=== PATIENT | male | born 1955 | race Caucasian/White ===

== ENCOUNTER → 2021-10-27 09:59 | Outpatient (BNVA) | payer MEDICARE, SELFPAY | PROVIDERS: PCP Family Medicine; Visit Provider Nurse Practitioner Family | DX: I10 Essential (primary) hypertension (principal); I48.91 Unspecified atrial fibrillation | CPT/HCPCS: 80053 ==

== ENCOUNTER → 2021-12-03 13:38 | Outpatient (BNVA) | payer MEDICARE, SELFPAY | PROVIDERS: PCP Family Medicine; Visit Provider Nurse Practitioner Family | DX: N18.32 Chronic kidney disease, stage 3b (principal); I10 Essential (primary) hypertension; I48.91 Unspecified atrial fibrillation; Z12.5 Encounter for screening for malignant neoplasm of prostate; R39.198 Other difficulties with micturition; N40.0 Benign prostatic hyperplasia without lower urinary tract symptoms; N39.0 Urinary tract infection, site not specified; Z12.2 Encounter for screening for malignant neoplasm of respiratory organs; F17.200 Nicotine dependence, unspecified, uncomplicated; R05.3 Chronic cough; Z11.59 Encounter for screening for other viral diseases; Z91.89 Other specified personal risk factors, not elsewhere classified; Z53.20 Procedure and treatment not carried out because of patient's decision for unspecified reasons; I71.40 Abdominal aortic aneurysm, without rupture, unspecified | CPT/HCPCS: 80053; 80061; G0103 ==

== ENCOUNTER 2021-12-17 10:35 | Inpatient (IN) | payer MEDICARE, MEDICAID, SELFPAY ==
[2021-12-17] VITALS (81 sets, daily range): BP systolic 98–142; BP diastolic 74–122; PULSE 72–239; RESP 17–29; TEMP 36.4–36.6; O2SAT 92–100; BMI 23.7
--- NOTE | 2021-12-17 10:38 | ED_ITS ---
HPI - Chest Pain General: Chief Complaint: Arrhythmia/Palpitations Stated Complaint: CP Time Seen by Provider: 12/17/21 10:38 History of Present Illness: Mr. Carr is a 66-year-old gentleman with history of known CAD status post PCI presenting to the emergency department due to abnor mal EKG. He reports approximately 1 week of progressive onset dyspnea and fatigue worse with exertion and occasional chest discomfort. He describes palpitations and generalized malaise. He presented to clinic today where he was noted to have a significantly elevated heart rate, borderline low blood pressure, and abnormal EKG. Initially clinic apparently believed that this was a STEMI however upon review appears to either be VT or SVT with aberrancy. EMS did not administer treatment in route other than supplemental oxygen. He did have 1 previous episode prior to last NC where he was cardioverted or given adenosine (somewhat unclear) and subsequently transferred for PCI. Onset (ago): week(s) Timing of current episode: increasing Prior episodes: Yes Onset: during rest Severity: severe Exacerbating factors: exertion Associated symptoms: Reports dyspnea and other Review of Systems General: Reports: 10 or more systems reviewed and unremarkable except in HPI and below Resp: Reports: dyspnea [facility] ED PFSH: Medical History (Updated 12/17/21 @ 12:44 by Cesar Chan MD) AAA (abdominal aortic aneurysm) Atrial fibrillation BPH (benign prostatic hyperplasia) CAD in [place] artery Current every day smoker Hepatitis C Reports this has not been completely treated. HTN (hypertension) Mixed hyperlipidemia Rheumatoid arthritis Surgical History (Updated 12/17/21 @ 12:32 by Cesar Chan MD) Stented coronary artery Family History (Updated 12/17/21 @ 12:32 by Cesar Chan MD) Other CAD (coronary artery disease) Dementia Social History (Updated 12/17/21 @ 12:33 by Cesar Chan MD) Smoking and tobacco status: current every day smoker Alcohol intake: former Desire information about substance/drug rehabilitation?: Yes Counseling given: Yes (given information and phone number for [facility] in [place] ) Type of substance drug use counseling provided: other Other substance/drug use counseling details: phone number [phone] Lives independently: No Marital status: / service: No Current occupational status: disabled Current gender identity: Male Physical Exam Const: COMMON NORMALS: alert GENERAL APPEARANCE: cooperative and well developed HENMT: COMMON NORMALS: normocephalic and atraumatic HEAD & SCALP: normocephalic and atraumatic Eye: COMMON NORMALS: conjunctivae normal CONJUNCTIVA: Yes conjunctivae normal SCLERA: sclerae normal Neck/C-Spine: COMMON NORMALS: supple GENERAL: Yes trachea midline Resp: COMMON NORMALS: clear to auscultation bilaterally EFFORT & INS PECTION: Yes able to speak in complete sentences and Yes tachypneic AUSCU LTATION: clear to auscultation bilaterally Cardio: COMMON NORMALS: regular rhythm RATE: tachycardic RHYTHM: regular rhythm GI: COMMON NORMALS: Soft to palpation PALPATION: Yes Soft to palpation and No Tenderness to palpation present (GI) Extremity: GENERAL: Yes normal exam except as noted and No edema Neuro: COMMON NORMALS: moves all extremities SENSORIUM/ORIENTATION: Yes alert and No Orientation impaired Psych: COMMON NORMALS: mental status grossly normal and Normal thought process present THOUGHT PROCESS: Normal thought process present Procedures Procedural Sedation Indication: other Preparation: athletic monitor applied, pulse oximeter, supplemental O2 applied, suction/airway equipment at bedside and IV secured Midazolam: IV Midazolam dose (mg): 4 Patient Tolerated Procedure: well and no complications Course Vital Signs: Vital signs: Vital Signs Pulse Rate 93 12/17/21 12:00 Blood Pressure 109/85 12/17/21 12:00 Pulse Oximetry 99 12/17/21 12:00 MDM - Chest Pain Medical Decision Making 66-year-old gentleman presenting to the emergency department with tachyarrhythmia. Patient is symptomatic with dyspnea on exertion and profound fatigue however at rest patient mentation is adequate without significant increase in respiratory effort. He does have borderline blood pressure 95/palp. Review of EKG still somewhat inconclusive for VT versus tachycardia with aberrancy however given age VT seems more likely. Given adequate mentation I will proceed with amiodarone. 150 mg administered over 10 minutes without significant rate improvement. I discussed electrical cardioversion with the patient and patient was administered 4 mg of Versed with desired therapeutic effect for procedure. Patient cardioverted with synchronized cardioversion x1 at 120 J with anterior posterior pad placement with successful conversion to sinus rhythm. Repeat EKG demonstrates sinus rhythm with nonspecific ST segment abnormalities. No STEMI Laboratory studies notable for leukocytosis of uncertain etiology, may be reactive, normal hemoglobin though perhaps hemoconcentrated compared to prior. Metabolic panel with creatinine elevation above recent study. Initial troponin elevated with 2-hour troponin pending, certainly there will be a component of elevation secondary to tachyarrhythmia and cardioversion. BNP is elevated. Chest x-ray with no lobar consolidation or pneumothorax. The results of ED evaluation were discussed with the patient including plan for admission due to requirement for level of care not available if discharged to prevent significant worsening/deterioration. Patient agreeable with plan. Case discussed with cardiology who will be consulted. Discussed case with Dr. Chan of the hospitalist service who agreed to admit the patient. Medical Records I reviewed the patient's medical records. Lab Data I reviewed the patient's lab results. : 12/17/21 10:40 12/17/21 10:40 Radiology Impressions Chest X-Ray 12/17/21 10:38 IMPRESSION: No acute findings. Laboratory Results WBC 16.2 10^3/uL (4.0-10.0) H 12/17/21 10:40 RBC 5.96 10^6/uL (4.1-5.3) H 12/17/21 10:40 Hgb 16.4 g/dL (11.7-16.6) 12/17/21 10:40 Hct 49.8 % (42.0-52.0) 12/17/21 10:40 MCV 83.6 fl (80-94) 12/17/21 10:40 MCH 27.5 pg (28.0-34.0) L 12/17/21 10:40 MCHC 32.9 g/dL (30.0-36.0) 12/17/21 10:40 RDW 16.5 % (12.1-15.1) H 12/17/21 10:40 Plt Count 299 10^3/cmm (130-400) 12/17/21 10:40 MPV 11.5 fL (7.4-10.4) H 12/17/21 10:40 Neut % (Auto) 51.9 % 12/17/21 10:40 Lymph % (Auto) 36.9 % 12/17/21 10:40 [place] % (Auto) 7.1 % 12/17/21 10:40 Eos % (Auto) 2.2 % 12/17/21 10:40 Baso % (Auto) 1.3 % 12/17/21 10:40 Neut # (Auto) 8.41 10^3/uL (1.8-7.7) H 12/17/21 10:40 Lymph # (Auto) 6.0 10^3/uL (0.8-4.8) H 12/17/21 10:40 [place] # (Auto) 1.2 10^3/uL (0.2-0.9) H 12/17/21 10:40 Eos # (Auto) 0.4 10^3/uL (0.0-0.8) 12/17/21 10:40 Baso # (Auto) 0.2 10^3/uL (0.0-0.1) H 12/17/21 10:40 Nucleated RBC % (auto) 0 % 12/17/21 10:40 Nucleated RBCs # 0.0 /100WBC 12/17/21 10:40 PT 14.10 SECONDS (12.1-14.9) 12/17/21 10:40 INR 1.06 (0.8-1.2) 12/17/21 10:40 APTT 26.7 SECONDS (23.9-36.7) 12/17/21 10:40 Sodium 139 mmol/L (136-145) 12/17/21 10:40 Potassium 3.6 mmol/L (3.5-5.1) 12/17/21 10:40 Chloride 99 mmol/L (98-107) 12/17/21 10:40 Carbon Dioxide 22 mmol/L (22-29) 12/17/21 10:40 Anion Gap 21.6 (5-19) H 12/17/21 10:40 BUN 30 mg/dL (8-23) H 12/17/21 10:40 Creatinine 1.7 mg/dL (0.7-1.2) H 12/17/21 10:40 GFR Calculation 40.7 mL/min (90-130) L 12/17/21 10:40 Glucose 121 mg/dL (65-115) H 12/17/21 10:40 Calculated Osmolality 295 mOsm/kg (285-295) 12/17/21 10:40 Calcium 9.4 mg/dL (8.5-10.5) 12/17/21 10:40 Magnesium 2.2 mg/dL (1.7-2.3) 12/17/21 10:40 Total Bilirubin 0.4 mg/dL (0.15-1.2) 12/17/21 10:40 AST 11 U/L (0-40) 12/17/21 10:40 ALT 10 U/L (0-41) 12/17/21 10:40 Alkaline Phosphatase 114 U/L (40-130) 12/17/21 10:40 Troponin T Baseline 32 ng/L (0-15) H 12/17/21 10:40 NT-Pro-B Natriuret Pep 35870 pg/mL (0-125) H 12/17/21 10:40 Total Protein 7.4 g/dL (6.6-8.7) 12/17/21 10:40 Albumin 4.2 g/dL (3.5-5.2) 12/17/21 10:40 Globulin 3.2 g/dL (1.3-4.6) 12/17/21 10:40 TSH 1.76 uIU/mL (0.27-4.20) 12/17/21 10:40 Critical Care Time Critical Care Time: Critical Care Time: Yes Total Critical Care Time: 45 Attestation: Due to a high probability of clinically significant, possibly life threatening deterioration, the patient required my highest level of attention and preparedness to intervene emergently and I personally spent this critical care time directly and personally managing the patient. This critical care time included obtaining a history; examining the patient; pulse oximetry; ordering and review of laboratory and imaging studies; arranging urgent treatment with development of a management plan; evaluation of patient's response to treatment; frequent reassessment; and, discussions with other providers as applicable. It was exclusive of separately billable procedures. Primary system involved is cardiac Discharge Plan Discharge Patient Disposition: Admitted As Inpatient Clinical Impression: Ventricular tachyarrhythmia Condition: Stable Coding Level of Care Code ED Geology Associate for Ashleigh [facility]ws[facility] Exam Comprehensive
--- NOTE | 2021-12-17 10:38 | XRR_ITS ---
PROCEDURE INFORMATION: Exam: XR Chest Exam date and time: 12/17/2021 10:43 AM Age: 66 years old Clinical indication: Angina pectoris; Patient HX: Chest pain. Aed pads in place and in images. ; Additional info: Cp TECHNIQUE: Imaging protocol: Radiologic exam of the chest. Views: 1 view. COMPARISON: CR XR chest 1V [id number] 03/10/2018 7:44 PM FINDINGS: Lungs: Unremarkable. No consolidation. Pleural spaces: Unremarkable. No pleural effusion. No pneumothorax. Heart/Mediastinum: Unremarkable. No cardiomegaly. Bones/joints: Unremarkable. XR/XR chest 1V portable [id number] IMPRESSION: No acute findings.
--- NOTE | 2021-12-17 10:38 | ECG_ITS ---
[facility] Test Date: 2021-12-17 Pat Name: Иван Carr Department: Room: Gender: Male City Dispatch Supervisor: : 1955 Requested By: Ed Carpenter Order Number: [id number] Carley MD: Mya Kilgore M.D. Measurements Intervals [place] Rate: 218 P: [place]: QRS: -12 QRSD: 238 T: 80 QT: 307 QTc: 586 Interpretive Statements Wide-complex tachycardia Compared to ECG 03/10/2018 22:52:46 Sinus rhythm no longer present ST (T wave) deviation still present Electronically Signed On 12-17-2021 12:21:30 CDT by Mya Kilgore M.D. [id number]
[2021-12-17 10:46] LABS: Basophils # 0.2 10^3/uL (0.0-0.1); Basophils % 1.3 %; Eosinophils # 0.4 10^3/uL (0.0-0.8); Eosinophils % 2.2 %; Hematocrit 49.8 % (42.0-52.0); Hemoglobin 16.4 g/dL (11.7-16.6); Lymphocytes % 36.9 %; Mean Corpuscular HGB Conc 32.9 g/dL (30.0-36.0); Mean Corpuscular Hemoglobin 27.5 pg (28.0-34.0); Mean Corpuscular Volume 83.6 fl (80-94); Mean Platelet Volume 11.5 fL (7.4-10.4); Monocytes # 1.2 10^3/uL (0.2-0.9); Monocytes % 7.1 %; Neutrophils # 8.41 10^3/uL (1.8-7.7); Neutrophils % 51.9 %; Nucleated Red Blood Cells % 0 %; Platelet Count 299 10^3/cmm (130-400); Red Blood Count 5.96 10^6/uL (4.1-5.3); Red Cell Distribution Width 16.5 % (12.1-15.1); White Blood Count 16.2 10^3/uL (4.0-10.0)
[2021-12-17] MEDS: sodium chloride 0.9% 500 ML 999 ML IV (11:00)
[2021-12-17 11:01] LABS: INR 1.06 (0.8-1.2)
[2021-12-17 11:03] LABS: Partial Thromboplastin Time 26.7 SECONDS (23.9-36.7)
[2021-12-17 11:07] LABS: Troponin(5th) Baseline 32 ng/L (0-15)
[2021-12-17] MEDS: midazolam 1 mg/mL INJ 2 mL 6 MG IVP (11:07)
--- NOTE | 2021-12-17 11:20 | PC.NURSE ---
Patient arrived to the ED with HR over 200. Provider ordered Amioderone, which was unsuccessful in coverting the patient. Patient was then instructed about the benefits and dangers of cardioversion. patient gave verbal consent. Patient was successfully cardioverted to SR. Patient is now resting in bed.
[2021-12-17 11:27] LABS: Alanine Aminotransferase 10 U/L (0-41); Albumin Level 4.2 g/dL (3.5-5.2); Alkaline Phosphatase 114 U/L (40-130); Aspartate Amino Transferase 11 U/L (0-40); Blood Urea Nitrogen 30 mg/dL (8-23); Calcium 9.4 mg/dL (8.5-10.5); Carbon Dioxide 22 mmol/L (22-29); Globulin 3.2 g/dL (1.3-4.6); Glomerular Filtration Rate 40.7 mL/min (90-130); Glucose 121 mg/dL (65-115); NT Pro B Type Natriuretic Pept 24812 pg/mL (0-125); Thyroid Stimulating Hormone 1.76 uIU/mL (0.27-4.20); Total Bilirubin 0.4 mg/dL (0.15-1.2); Total Protein 7.4 g/dL (6.6-8.7)
[2021-12-17 11:40] LABS: Anion Gap 21.6 (5-19); Chloride 99 mmol/L (98-107); Osmolality Calculated 295 mOsm/kg (285-295); Potassium 3.6 mmol/L (3.5-5.1); Sodium 139 mmol/L (136-145)
[2021-12-17 11:55] LABS: Magnesium 2.2 mg/dL (1.7-2.3)
--- NOTE | 2021-12-17 12:25 | P.HP_ITS ---
Providers/Chief Complaint Admitting Physician: Cesar Chan MD Primary Care Provider: Radha Brice MD Chief Complaint: CP History of Present Illness Иван Carr is a 66 year old male presenting to the emergency department from primary care provider's office. Apparently he has been feeling very short of breath, having significant palpitations as well as funny feeling in his chest over the last week. He states it is very frequent and he rarely has had a time without it. He had a back surgery, lower back around the seventh of this month. At that time he had held his Plavix and did not resume it. He was started on Plavix for angiogram and stent placement in [place] approximately 2019 or 20. At that time he reported stenting of the maker vessel and reported another vessel was 70% narrowed but was not intervened on. He also did not resume his Plaquenil or carvedilol after his back surgery. He has been taking his diltiazem. He reports he is still smoking. He denies any recent illness. He denies any chest discomfort currently, reporting he feels much better after his cardioversion. In the emergency department he presented with tachycardia, rate approximately 220, wide-complex. Amiodarone 150 mg IV x1 was given, but with no improvement cardioversion occurred. On arrival systolic blood pressure was less than 90. Review of Systems General: Reports: 10 or more systems reviewed and unremarkable except in HPI and below Const: Denies: fever(s) or chills Eyes: Denies: change in vision ENMT: Denies: throat pain Card: Reports: palpitations and dyspnea on exertion Resp: Reports: dyspnea GI: Denies: abdominal pain, hematochezia or melena : Reports: difficulty urinating; Denies: flank pain Musc: Reports: back pain and joint stiffness; Denies: neck pain Skin/Breast: Denies: rash Neuro: Denies: headache(s) Psych: Denies: anxiety or depression Endo: Denies: polyuria [place]/Lymph: Denies: easy bruising All/Imm: Denies: urticaria Medications/Allergies Home Medications Medication Instructions Recorded Confirmed Last Taken Type carvedilol 12.5 mg tablet 12.5 mg PO BID 04/23/21 12/17/21 Unknown History diltiazem HCl 120 mg 120 mg PO DAILY 04/23/21 12/17/21 Unknown History capsule,extended release 24 hr, controlled hydrochlorothiazide 12.5 mg tablet 12.5 mg PO DAILY 04/23/21 12/17/21 12/16/21 History hydroxychloroquine 200 mg tablet 200 mg PO BID 04/23/21 12/17/21 Unknown History doxycycline hyclate 100 mg tablet 100 mg PO BID 10 days #20 tabs 12/03/21 12/17/21 Unknown Rx tamsulosin 0.4 mg capsule 0.4 mg PO BID 90 days #180 caps 12/03/21 12/17/21 12/16/21 Rx atorvastatin 20 mg tablet 20 mg PO DAILY 30 days #30 tabs 12/04/21 12/17/21 11/03/08 Rx bupropion HCl 150 mg 24 hr tablet, 150 mg PO DAILY 12/17/21 12/17/21 Unknown History extended release clopidogrel 75 mg tablet 75 mg PO DAILY 30 days #30 tabs 12/17/21 12/17/2112/16 Rx ondansetron HCl 4 mg tablet 4 mg PO TID PRN Nausea And Vomiting 12/17/21 12/17/21 Unknown History prednisone 5 mg tablet 5 mg PO DAILY PRN flare ups 12/17/21 12/17/21 Unknown History Allergies Allergy/AdvReac Type Severity Reaction Status Date / Time No Known Allergies Allergy Verified 12/17/21 11:59 PFSH Acute PFSH: Medical History (Updated 12/17/21 @ 12:44 by Cesar Chan MD) AAA (abdominal aortic aneurysm) Atrial fibrillation BPH (benign prostatic hyperplasia) CAD in [place] artery Current every day smoker Hepatitis C Reports this has not been completely treated. HTN (hypertension) Mixed hyperlipidemia Rheumatoid arthritis Surgical History (Updated 12/17/21 @ 12:32 by Cesar Chan MD) Stented coronary artery Family History (Updated 12/17/21 @ 12:32 by Cesar Chan MD) Other CAD (coronary artery disease) Dementia Social History (Updated 12/17/21 @ 12:33 by Cesar Chan MD) Smoking and tobacco status: current every day smoker Alcohol intake: former Desire information about substance/drug rehabilitation?: Yes Counseling given: Yes (given information and phone number for [facility] in [place] ) Type of substance drug use counseling provided: other Other substance/drug use counseling details: phone number [phone] Lives independently: No Marital status: / service: No Current occupational status: disabled Current gender identity: Male Vitals/I&O/Wt Last Vital Signs Pulse 93 12/17/21 12:00 BP 109/85 12/17/21 12:00 Pulse Ox 99 12/17/21 12:00 12/16/21 12/17/21 12/17/21 22:59 06:59 14:59 Intake Total 103 / 103 Balance 103 / 103 Weight last 48 hrs Weight 79.379 kg Physical Exam Narrative: General exam is a white male, currently denies any chest discomfort, in no distress HEENT: Atraumatic and normocephalic. Pupils equally round. Oropharynx clear. Neck is supple no lymphadenopathy or thyromegaly Cardiovascular regular rate and rhythm without murmur Lungs clear but with diminished breath sounds bilaterally. No wheezes or crackles Abdomen is soft nontender with positive bowel sounds. No obvious organomegaly exam is deferred Extremities no cyanosis clubbing or edema, cap refill brisk Skin no rash Neuro no obvious focal deficits. Data : 12/17/21 10:40 12/17/21 10:40 Other Labs: INR is normal Previous creatinine on December 03 was 0.9 Calcium 9.4 LFTs normal Troponin baseline 32 BNP 18421 TSH 1.76 Magnesium 2.2 Chest x-ray no infiltrate EKG initially demonstrated a heart rate of 218, wide-complex Repeat EKG demonstrates flipped T waves inferiorly and V1 through 3. No bundle branch block is noted. Rate improved at 98. These T wave abnormalities were not present on previous EKG we have in 2016. A&P Assessment and plan (1) Arrhythmia: [facility] wide-complex tachycardia and approximately 220 bpm. This was a very uniform. It appears to be ventricular tachycardia, although I cannot completely exclude atrial flutter through a left bundle. Will defer to cardiology. The patient does have history of coronary artery disease, with last intervention 2 to 3 years ago in [place]. His magnesium is normal. Potassium is in the normal range but will supplement to try to make for or greater. He did stop many of his medicines following back surgery on 21 November. These included Plaquenil, carvedilol, Plavix. From what I understand he is still taking his diltiazem. Amiodarone was given in the emergency department as a one-time bolus. It was not continued. Cardiology will address whether they would want to continue an amiodarone drip at this time. (2) Atrial fibrillation: Patient with past history of atrial fibrillation. This was noted on event monitor in 2016. Echo at that time was essentially normal. (3) Elevated troponin: Elevated troponin, arrhythmia, past history of heart disease bring up possibility of non-ST elevation myocardial infarction. Full dose anticoagulation Aspirin daily Load with Plavix Reinitiate low-dose beta-mo Cardiology consultation (4) Acute kidney injury: Hydration Suspect this will resolve Plan Other medical problems as outlined in past medical history Full code Lovenox will suffice for DVT prophylaxis Attestations Medical Necessity Statement*: Will require greater than 2 midnight stay for evaluation of wide-complex tachycardia. Coding Level of Care Code Acute Biochemical Development Engineer for [facility]i Diagnoses Arrhythmia I49.9 Atrial fibrillation I48.91 Elevated troponin R77.8 Acute kidney injury N17.9
--- NOTE | 2021-12-17 12:25 | USCV_ITS ---
[place]ван Age: 66 Gender: M : 1955 Exam Date: 12/17/2021 15:35 Ordering Phys: Cesar Chan MD Technologist: LAST [place] [facility] [place]: ARRHYTHMIA BP: 129 / 88 HR: 92 Rhythm: Sinus Technical Quality: Adequate MEASUREMENTS (Male / Female) Normal Values 2D ECHO LVOT Diameter 2.0 cm LV Ejection Fraction MOD 2C 64.8 % LV Ejection Fraction 2C AL 66.2 % LA Diameter 2.8 cm LA Width 3.3 cm LA Height 5.2 cm RA Width 3.8 cm RA Height 5.2 cm Aorta at Sinotubular Diameter 1.8 cm M-MODE Aortic Annulus Diameter 3.0 cm LA Ao Ratio MM 0.8 MV E Point Septal Separation 0.4 cm DOPPLER AV Peak Velocity 135.0 cm/s LVOT Peak Velocity 78.0 cm/s AV Area Cont Eq vti 1.9 cm squared AV Area Cont Eq pk 1.8 cm squared MV Peak Velocity 87.0 cm/s MV Area PHT 4.4 cm squared Mitral E to A Ratio 1.2 MV E' Velocity 40.5 cm/s Mitral E to MV E' Ratio 7.4 Mitral E to LV E' Lateral Ratio 7.4 Mitral E to LV E' Septal Ratio 7.4 TR Peak Velocity 236.8 cm/s TR Peak Gradient 22.4 mmHg TR Mean Velocity 185.9 cm/s TR Mean Gradient 14.9 mmHg TR Velocity Time Integral 69.5 cm TV Peak E Velocity 40.0 cm/s Right Atrial Pressure 8.0 mmHg Pulmonary Artery Systolic Pressu 30.4 mmHg PV Peak Velocity 76.0 cm/s RV Acceleration Time 0.1 s RV Ejection Time 0.2 s RV AcT/ET 0.2 FINDINGS Left Ventricle Normal left ventricular size, systolic function and wall thickness, with no regional wall motion abnormalities. Left ventricular ejection fraction is estimated at 55 %. Grade I/IV diastolic dysfunction (abnormal relaxation filling pattern), normal to mildly elevated filling pressures. Right Ventricle Normal right ventricular size and systolic function. Normal right ventricular systolic pressure. Right Atrium The right atrium is normal in size. Left Atrium The left atrium is normal in size. Mitral Valve Structurally normal mitral valve. Trace mitral valve regurgitation. Aortic Valve Structurally normal trileaflet aortic valve. Mild aortic valve calcification. Aortic valve sclerosis without stenosis. No aortic valve regurgitation. Tricuspid Valve Structurally normal tricuspid valve. Trace tricuspid valve regurgitation. Pulmonic Valve Pulmonic valve not well visualized. Pericardium Normal pericardium without effusion. Aorta Normal ascending aorta dimension. IVC The inferior vena cava appears normal. CONCLUSIONS Normal left ventricular size, systolic function and wall thickness, with no regional wall motion abnormalities. Left ventricular ejection fraction is estimated at 55 %. Grade I/IV diastolic dysfunction (abnormal relaxation filling pattern), normal to mildly elevated filling pressures. Structurally normal mitral valve. Trace mitral valve regurgitation. When compared to the previous echo dated 04/30/2015, there has been no significant change. Dr. Micah Laurent MD (Electronically Signed) Final Date: 18 December 2021 06:58 S
--- NOTE | 2021-12-17 12:38 | ECG_ITS ---
[facility] Test Date: 2021-12-17 Pat Name: Иван Carr Department: Room: Gender: Male Journal Box Inspector: : 1955 Requested By: Ed Carpenter Order Number: [id number] Carley MD: Mya Kilgore M.D. Measurements Intervals [place] Rate: 98 P: 51 WV: 142 QRS: 79 QRSD: 86 T: -14 QT: 354 QTc: 453 Interpretive Statements SINUS RHYTHM LEFT ATRIAL ENLARGEMENT [-0.15mV P-WAVE IN V1/V2] NONSPECIFIC ST & T-WAVE ABNORMALITY Compared to ECG 12/17/2021 10:38:58 Atrial abnormality now present T-wave abnormality now present Left bundle-branch block no longer present ST (T wave) deviation no longer present Myocardial infarct finding no longer present Electronically Signed On 12-17-2021 12:13:01 CDT by Mya Kilgore M.D. [id number]
[2021-12-17 13:14] LABS: Troponin 5 2HR 26.68 ng/L (0-15)
[2021-12-17 13:19] LABS: Troponin 5 2HR Delta -5.32 ABS# (0-10)
[2021-12-17] MEDS: potassium chloride ER 20 mEq Tablet 40 MEQ PO (13:47)
--- NOTE | 2021-12-17 13:50 | PC.PHAR ---
pt states he takes care of his own medications-pt states he is not taking carvedilol 25mg bid ext med history shows last filled 06/19/21 30d/s-pt states he hasnt taken hydroxychloroquine 200mg bid since around oct 22 2021 ext med history shows last filled 09/28/21 30d/s-pt states he is unsure if he takes diltiazem er 120mg daily ext med history shows last filled 10/21/21 90d/s-pt states since oct 22 2021 he hasnt been taking his medications like he should states he had back surgery -notes are made in the pharmacy comments
--- NOTE | 2021-12-17 14:31 | P.CONIM_ITS ---
Providers/Reason For Consult Consulting Physician/Specialty*: Cardiovascular medicine Reason for Consult*: Wide-complex tachycardia Requesting Physician: Cesar Chan Attending Physician: Cesar Chan Primary Care Provider: Radha Brice MD History of Present Illness History of Present Illness Иван Carr is a 66 year old male who has a history of coronary artery disease and had a stent placed several years ago in [facility]. He sees physicians in a variety of areas. Currently he is being seen by physicians in [place]. He is moving to this area he states. Over the last week he has had an irregular fast pounding heart rate. He states that he has a taste of steel in his mouth. He is not having any chest pain. He arrived in the emergency room with a wide-complex tachycardia with a rate of over 200 bpm. This represents either ventricular tachycardia or atrial fibrillation with a left bundle branch block. Emergency room physician gave him 150 mg of amiodarone which did not change the rhythm. The patient was awake and alert and has actually been in this rhythm for a week. When the amiodarone did not work he was sedated and cardioverted. He is now back in sinus rhythm. He is a bit of a suspect historian. He states that he has a AAA 4 cm x 4.1 cm. He sees a physician in [place] for this. He also has a history of atrial fibrillation along with a coronary artery disease. He is a smoker for many years. He has COPD. He has a history of hepatitis C, hypertension, dyslipidemia, rheumatoid arthritis and a chronic intermittent methamphetamine abuse. Has been in half-way several times for the drugs including 2005, 2017 and 2019. He states he has been clean and sober for 7 months. Review of Systems Narrative: Review of systems is negative Medications/Allergies Home Medications Medication Instructions Recorded Confirmed Last Taken Type diltiazem HCl 120 mg 120 mg PO DAILY 04/23/21 12/17/21 Unknown History capsule,extended release 24 hr, controlled hydrochlorothiazide 12.5 mg tablet 12.5 mg PO DAILY 04/23/21 12/17/21 12/16/21 History hydroxychloroquine 200 mg tablet 200 mg PO BID 04/23/21 12/17/21 10/22/21 History tamsulosin 0.4 mg capsule 0.4 mg PO BID 90 days #180 caps 12/03/21 12/17/21 12/16/21 Rx atorvastatin 20 mg tablet 20 mg PO DAILY 30 days #30 tabs 12/04/21 12/17/2103/08 Rx bupropion HCl 150 mg 24 hr tablet, 150 mg PO DAILY 12/17/21 12/17/21 Unknown History extended release clopidogrel 75 mg tablet 75 mg PO DAILY 30 days #30 tabs 12/17/21 12/17/21 11/0 03/08 Rx ondansetron HCl 4 mg tablet 4 mg PO TID PRN Nausea And Vomiting 12/17/21 12/17/21 Unknown History prednisone 5 mg tablet 5 mg PO DAILY PRN flare ups 12/17/21 12/17/21 Unknown History Allergies Allergy/AdvReac Type Severity Reaction Status Date / Time No Known Allergies Allergy Verified 12/17/21 13:49 PFSH Acute PFSH: Medical History (Updated 12/17/21 @ 12:44 by Cesar Chan MD) AAA (abdominal aortic aneurysm) Atrial fibrillation BPH (benign prostatic hyperplasia) CAD in [place] artery Current every day smoker Hepatitis C Reports this has not been completely treated. HTN (hypertension) Mixed hyperlipidemia Rheumatoid arthritis Surgical History (Updated 12/17/21 @ 12:32 by Cesar Chan MD) Stented coronary artery Family History (Updated 12/17/21 @ 12:32 by Cesar Chan MD) Other CAD (coronary artery disease) Dementia Social History (Updated 12/17/21 @ 12:33 by Cesar Chan MD) Smoking and tobacco status: current every day smoker Alcohol intake: former Desire information about substance/drug rehabilitation?: Yes Counseling given: Yes (given information and phone number for [facility] in [place] ) Type of substance drug use counseling provided: other Other substance/drug use counseling details: phone number [phone] Lives independently: No Marital status: / service: No Current occupational status: disabled Current gender identity: Male Vitals/I&O/Wt Last Vital Signs Pulse 86 12/17/21 13:45 BP 136/101 12/17/21 13:45 Pulse Ox 96 12/17/21 13:45 12/16/21 12/17/21 12/17/21 22:59 06:59 14:59 Intake Total 603 / 603 Balance 603 / 603 Weight last 48 hrs Weight 175 lb Physical Exam Narrative: GENERAL: General he looks comfortable and is resting without any difficulty HEENT: Exam within normal limits. NECK: Supple without jugular vein distention. The carotid upstroke is normal without bruits. BACK: Exam normal. LUNGS: Clear. HEART: Regular rate and rhythm. ABDOMEN: Benign without organomegaly or tenderness. EXTREMITIES: No edema. NEUROLOGIC: Exam normal. SKIN: Unremarkable. Data : 12/17/21 10:40 12/17/21 10:40 Other data: His BUN and creatinine are 30 and 1.7. Troponins 32 and 27. His BNP is almost 25,000. Cholesterol is 256 and an LDL of 190. Chest x-ray unremarkable. A&P Assessment and plan (1) Acute kidney injury: (2) Elevated troponin: (3) Arrhythmia: (4) Current every day smoker: (5) Atrial fibrillation: (6) HTN (hypertension): (7) AAA (abdominal aortic aneurysm): (8) Mixed hyperlipidemia: (9) CAD in [place] artery: (10) Abnormal EKG: (11) Chronic kidney disease, stage 3b: Plan He will need to come in. With his history of atrial fibrillation I am a little more suspicious this is atrial fibrillation with a rapid rate and a left bundle as opposed to ventricular tachycardia. He does have underlying coronary disease however so it could be VT. I think we will start out with a stress test since his BUN and creatinine are high. These are probably high because of the persistent rhythm disturbance. This also probably explains his BNP. An echo has been ordered. Once we get the echo and the stress test we will determine whether angiography is necessary. Otherwise, he will continue to be treated medically. Consult Attestations Medical Necessity Statement: Admission for management of wide-complex tachycardia and underlying organic heart disease. 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
[2021-12-17 14:36] LABS: Add Urine Culture? No; Bacteria Urine TRACE /hpf; Bilirubin Urine Neg (Negative); Blood Urine Neg (Negative); Glucose Urine UA Norm (Normal); Ketones Urine Negative (Negative); Leukocyte Esterase Urine Negative (Negative); Nitrate Urine Negative (Negative); Protein Urine Neg (Negative); Urine Appearance Clear (CLEAR); Urine Color Yellow (Yellow); Urobilinogen Urine Norm (Negative); pH Urine 5 (5-7)
--- NOTE | 2021-12-17 15:20 | PC.NURSE ---
Pt arrived from Emergency Dept. Pt alert and oriented. Pt denies any pain and/or shortness of breath. Sinus rhythm noted on monitor. Room orientation completed. Questions answered. No further needs at this time
[2021-12-17] MEDS: enoxaparin 80 mg/0.8 mL Syringe SUBCUT (17:02)
[2021-12-17] MEDS: sodium chloride 0.9% 1,000 ML 75 ML IV ×2 (17:02→23:57)
[2021-12-17] MEDS: tamsulosin 0.4 mg Capsule PO (17:03)
[2021-12-17] MEDS: carvedilol 6.25 mg Tablet PO (17:03)
[2021-12-17 17:33] LABS: Troponin 5 6HR 62.21 ng/L (0-15)
[2021-12-17 17:41] LABS: Troponin 5 6HR Delta 30.21 ng/L (0-12)
--- NOTE | 2021-12-17 18:27 | PC.NURSE ---
Shift Note; Sinus rhythm noted on monitor since arrival to .. Echo completed but not read at this time. Pt continues to deny pain or shortness or breath. IV fluids started. Pt up to BSC, flatus noted. Urine dark yellow. Daughter, Yelena, was in to visit, all questions answered. Plan to have stress test. Then after stress test and echo read, decide on anigogram per Dr Laurent's progress note. Frequent safety and comfort rounds continue. Orders and/or nursing care completed as indicated. Patient monitored for response to intervention and treatment(s). Education provided includes Lovenox, cardizem, and Flomax and Plan of care. . Patient and/or entry level marketing representative verbalized understanding of plan of care and medications discussed. Will continue to monitor.
--- NOTE | 2021-12-17 18:50 | PC.NURSE ---
Bedside report completed with DANYELLE Oliva
[2021-12-18] VITALS (13 sets, daily range): BP systolic 102–134; BP diastolic 73–96; PULSE 72–90; RESP 14–31; TEMP 36.3–36.9; O2SAT 92–98
[2021-12-18] MEDS: enoxaparin 80 mg/0.8 mL Syringe SUBCUT ×2 (03:35→16:26)
[2021-12-18] MEDS: sodium chloride 0.9% 1,000 ML 75 ML IV (06:06)
[2021-12-18 07:48] LABS: Basophils # 0.1 10^3/uL (0.0-0.1); Basophils % 1.9 %; Eosinophils # 0.4 10^3/uL (0.0-0.8); Eosinophils % 6.1 %; Hematocrit 39.2 % (42.0-52.0); Hemoglobin 12.6 g/dL (11.7-16.6); Lymphocytes % 43.8 %; Mean Corpuscular HGB Conc 32.1 g/dL (30.0-36.0); Mean Corpuscular Volume 83.9 fl (80-94); Mean Platelet Volume 11.1 fL (7.4-10.4); Monocytes # 0.6 10^3/uL (0.2-0.9); Monocytes % 8.4 %; Neutrophils # 2.67 10^3/uL (1.8-7.7); Neutrophils % 39.5 %; Nucleated Red Blood Cells % 0 %; Platelet Count 184 10^3/cmm (130-400); Red Blood Count 4.67 10^6/uL (4.1-5.3); White Blood Count 6.8 10^3/uL (4.0-10.0)
--- NOTE | 2021-12-18 07:59 | PM.PN ---
Subjective Subjective: The patient has had an uneventful night. No more arrhythmias. The troponins were relatively low the first 32, the second 27 and the third 62. His BNP was nearly 25,000. His echo this morning shows normal LV function and is the same as it was a few years ago. No chest pain. Vitals/I&O/Wt Last Vital Signs Temp 97.7 F 12/18/21 06:00 Pulse 74 12/18/21 06:00 Resp 14 12/18/21 06:00 BP 117/84 12/18/21 06:00 Pulse Ox 96 12/18/21 06:00 O2 Del Method 12/18/21 06:00 12/17/21 12/18/21 12/18/21 22:59 06:59 14:59 Intake Total 600 / 1203 1486.833 / 2689.833 Output Total 125 / 125 450 / 575 Balance 475 / 1078 1036.833 / 2114.833 Weight last 48 hrs Weight 173 lb Weight 175 lb Physical Exam Narrative: GENERAL: In general he is comfortable this morning HEENT: Exam within normal limits. NECK: Supple without jugular vein distention. The carotid upstroke is normal without bruits. BACK: Exam normal. LUNGS: Clear. HEART: Regular rate and rhythm. ABDOMEN: Benign without organomegaly or tenderness. EXTREMITIES: No edema. NEUROLOGIC: Exam normal. SKIN: Unremarkable. Data : 12/18/21 07:38 12/17/21 10:40 A&P Assessment and plan (1) Acute kidney injury: (2) Elevated troponin: (3) Current every day smoker: (4) Arrhythmia: (5) Atrial fibrillation: (6) HTN (hypertension): (7) AAA (abdominal aortic aneurysm): (8) Mixed hyperlipidemia: (9) CAD in [place] artery: Plan Now that we have the echo information it appears even more likely that the rhythm disturbance was atrial fibrillation with a left bundle branch block. I have put the carvedilol on hold and we will do a stress test today. I am not moving directly to angiography because of his renal function. If his stress test is unremarkable I will switch him to Betapace for the arrhythmia. He should be considered for anticoagulation as well. Attestations Medical Necessity Statement*: Hospitalization for wide-complex tachycardia. 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
[2021-12-18 08:03] LABS: Alanine Aminotransferase 8 U/L (0-41); Albumin Level 3.2 g/dL (3.5-5.2); Alkaline Phosphatase 80 U/L (40-130); Anion Gap 11.5 (5-19); Aspartate Amino Transferase 13 U/L (0-40); Blood Urea Nitrogen 23 mg/dL (8-23); Calcium 8.5 mg/dL (8.5-10.5); Carbon Dioxide 23 mmol/L (22-29); Chloride 107 mmol/L (98-107); Globulin 2.6 g/dL (1.3-4.6); Glomerular Filtration Rate 67.2 mL/min (90-130); Glucose 85 mg/dL (65-115); Magnesium 1.7 mg/dL (1.7-2.3); Osmolality Calculated 289 mOsm/kg (285-295); Potassium 3.5 mmol/L (3.5-5.1); Sodium 138 mmol/L (136-145); Total Bilirubin 0.3 mg/dL (0.15-1.2); Total Protein 5.8 g/dL (6.6-8.7)
--- NOTE | 2021-12-18 08:04 | ECG_ITS ---
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 Interpretive Statements NAME OF STUDY: LEXISCAN SESTAMIBI STRESS TEST INDICATION: Chest Pain PROCEDURE: At the baseline, the blood pressure was 155/101 mmHg with a heart rate of 79 bpm. The electrocardiogram showed normal sinus rhythm, normal axis with ST depression and T wave inversion in lead III, aVF, V3 to V6. The Lexiscan was infused over a period of 20 seconds. A total of 0.4 milligrams of Lexiscan was infused. The stress phase was continued for a total of 5 minutes. Heart rate at the end of the stress phase was 92 bpm with a blood pressure of 138/92 mmHg. The EKG at the peak infusion revealed sinus rhythm with no significant ST-T wave changes. Sestamibi was injected 20 seconds after the Lexiscan infusion. Blood pressure at the end of the recovery phase was 125/92 mmHg with a heart rate of 90 beats per minute. CONCLUSION: 1. Nondiagnostic EKG due to LexiScan infusion due to baseline ST-T wave changes. 2. No LexiScan induced chest pain or cardiac arrhythmia. 3. Normal blood pressure and heart rate response. 4. Sestamibi/sestamibi perfusion scan pending; see separate report. Electronically Signed On 12-18-2021 17:52:25 CDT by Mya Kilgore M.D. [id number]
--- NOTE | 2021-12-18 08:07 | NMCV_ITS ---
NM arabella perf SPECT r/s* [id number] LedgewoodИван Age: 66 Gender: M : 1955 Exam Date: 12/18/2021 08:07 Ordering Phys: Micah Laurent MD ([email or web address]) Technologist: CONRAD Pineda Exam Location: [facility] Indications: CHEST PAIN STRESS TEST Please see separate stress test report in [facility] for full findings IMAGE PROTOCOL Rest/Stress 1 Lexiscan Day Radiopharmaceutical Dose (mCi) Administration Site Administered by Rest: Tc-99m 10.6 IV CONRAD Ta Sestamibi Stress:Tc-99m 32.6 IV CONRAD Ta Sestamibi Rest: 18-Dec-2021 60 Discovery 630 Stress: 18-Dec-2021 30 Discovery 630 0.4mg Lexiscan. Supine position only as patient was unable to lay prone. SPECT RESULTS Technical Quality: Excellent Raw Data Analysis: Subdiaphragmatic attenuation artifact. Image Corrections: No attenuation or motion correction applied Summed Stress Score: 1 Summed Rest Score: 0 Summed Difference Score: 1 PERFUSION FINDINGS SPECT images demonstrate homogeneous tracer distribution throughout the myocardium. FUNCTIONAL RESULTS (calculated via Gated SPECT) Stress Image LV EF (%): 60 Stress EDV (mL):106 TID: 1.24 Stress ESV (mL):42 FUNCTIONAL FINDINGS: The left ventricle is normal in size. Transient Ischemia Dilatation of 1.2. There is normal left ventricular systolic function. There is normal left ventricular wall thickening. Normal end-diastolic end-systolic volumes. IMPRESSIONS 1. Myocardial perfusion imaging is normal. Attenuation artifact in mid to apical inferior wall. 2. Overall left ventricular systolic function is normal without regional wall motion abnormalities,LVEF=60%. 3. Transient ischemic dilation index mildly increased at 1.2. This may represent hypertensive response/subendocardial ischemia. Clinical correlation is advised. 4. EKG portion of the study will be reported separately. Mya Kilgore MD (Electronically Signed) Final Date: 18 December 2021 17:50 S
--- NOTE | 2021-12-18 10:59 | PM.PN ---
Subjective Subjective: Иван reports he is feeling better. Undergoing a stress test today. No chest discomfort or palpitations last night. Beta-mo held for stress test. Medications: Reviewed: Yes Vitals/I&O/Wt Last Vital Signs Temp 97.7 F 12/18/21 08:00 Pulse 74 12/18/21 10:00 Resp 14 12/18/21 10:00 BP 117/84 12/18/21 10:00 Pulse Ox 96 12/18/21 10:00 O2 Del Method 12/18/21 10:00 12/17/21 12/18/21 12/18/21 22:59 06:59 14:59 Intake Total 600 / 1203 1486.833 / 2689.833 Output Total 125 / 125 450 / 575 Balance 475 / 1078 1036.833 / 2114.833 Weight last 48 hrs Weight 78.471 kg Weight 79.379 kg Physical Exam Narrative: General exam is a white male, no distress Neck is supple no lymphadenopathy or thyromegaly Cardiovascular regular rate and rhythm without murmur Lungs clear but with diminished breath sounds bilaterally. No wheezes or crackles Abdomen is soft nontender with positive bowel sounds. No obvious organomegaly exam is deferred Extremities no cyanosis clubbing or edema, cap refill brisk Skin no rash Data : 12/18/21 07:38 12/18/21 07:38 A&P Assessment and plan (1) Arrhythmia: Patient presented to the emergency department, an outlying physician's office with wide-complex tachycardia and approximately 220 bpm. This was a very uniform. It appears to be ventricular tachycardia, although I cannot completely exclude atrial flutter through a left bundle. Will defer to cardiology. The patient does have history of coronary artery disease, with last intervention 2 to 3 years ago in [place]. He did stop many of his medicines following back surgery on 21 November. These included Plaquenil, carvedilol, Plavix. From what I understand he is still taking his diltiazem. Amiodarone was given in the emergency department as a one-time bolus. It was not continued. Potassium level 3.5 today. Supplement 40 mill equivalents. Echo essentially normal (2) Atrial fibrillation: Patient with past history of atrial fibrillation. This was noted on event monitor in 2015. Echo at that time was essentially normal. Rhythm disturbance higher likelihood and discussion with cardiology that this represents atrial fibs/flutter through left bundle. Await nuclear stress test. Continue full dose anticoagulation TSH was checked and normal. (3) Elevated troponin: Elevated troponin, arrhythmia, past history of heart disease bring up possibility of non-ST elevation myocardial infarction. Continue full dose anticoagulation Continue aspirin Appreciate cardiology consultation (4) Acute kidney injury: With hydration this has resolved Plan Other medical problems as outlined in past medical history Full code Lovenox will suffice for DVT prophylaxis Attestations Medical Necessity Statement*: Needs continued hospitalization for delineation of cause of arrhythmia, elevated troponin, awaiting nuclear stress test and further plans for rhythm control per cardiology. 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
[2021-12-18] MEDS: regadenoson 0.4 Mg/5 ml Syringe IVP (12:30)
--- NOTE | 2021-12-18 12:53 | PC.CHAP ---
Pastoral Care Encounter/Spiritual Assessment Type of Contact [] Declined vending technician visit [] Patient/Family/Request visit [] Outpatient visit [] Follow-up visit [] Physician referral [] Code/Alert [x] Routine visit [] Staff referral [] Actively dying [] Patient sleeping [] Family support [] [] Out of room [] Palliative care [] [] Receiving care in room [] Pre-surgical visit [] Trauma [] Long length of stay [x] ICU visit [] Other: Relational/Emotional Strength [] Patient feels connected with others/family/visitors/staff [] Distress [] Loneliness/isolation [] Abandonment Spirituality of Patient [] Person of Mary Carmen [] Attends Hinduism of their Mary Carmen [] Believes in Prayer [] Reads Bible or Jainism materials [] There are Spiritual issues to be addressed Electrical And Instrument Engineer Interventions [x] Prayer [] Active listening [] Non-anxious presence [] Spiritual/emotional support [] Crisis/trauma care [] Spiritual counseling [] Bereavement support [] Provided bereavement packet [] Provided Bible/devotional materials [] Provided toy/stuffed animal, coloring book to patient or family member [] Provided Communion [] Anointing/Guildhall [] Salvation [x] Completed spiritual assessment [] Other: Impact on Illness or Injury [] Angry [] Fearful [] Anxious [] Often cries [] Exhaustion [] Unable to work [] Unable to attend druze [] Unable to walk/stand [] Unable to read [] Unable to drive [] Unable to eat/drink [] Unable to sleep [] Unable to be with family [] Patient intubated [] Other: Summary Time spent with patient
[2021-12-18] MEDS: pantoprazole DR 40 mg Tablet PO (13:55)
[2021-12-18] MEDS: aspirin 81 mg EC Tablet PO (13:56)
[2021-12-18] MEDS: potassium chloride ER 20 mEq Tablet 40 MEQ PO (13:56)
[2021-12-18] MEDS: atorvastatin 40 mg Tablet 20 MG PO (13:56)
--- NOTE | 2021-12-18 15:00 | PC.NURSE ---
Report to CSU Report called to Carmela BASSETT. Pt taken via wheelchair. Bedside report given to Carmela.
[2021-12-18] MEDS: tamsulosin 0.4 mg Capsule PO (17:13)
[2021-12-18] MEDS: sotalol 80 mg Tablet PO (19:51)
[2021-12-19] VITALS (7 sets, daily range): BP systolic 123–157; BP diastolic 85–103; PULSE 66–82; RESP 16–26; TEMP 36.5–37.1; O2SAT 92–96
[2021-12-19] MEDS: enoxaparin 80 mg/0.8 mL Syringe SUBCUT (04:44)
[2021-12-19 05:47] LABS: Anion Gap 11.3 (5-19); Blood Urea Nitrogen 19 mg/dL (8-23); Calcium 8.7 mg/dL (8.5-10.5); Carbon Dioxide 25 mmol/L (22-29); Chloride 107 mmol/L (98-107); Glucose 85 mg/dL (65-115); Magnesium 1.7 mg/dL (1.7-2.3); Osmolality Calculated 290 mOsm/kg (285-295); Potassium 4.3 mmol/L (3.5-5.1); Sodium 139 mmol/L (136-145)
[2021-12-19] MEDS: morphine 4 mg/mL SDV 1 mL 2 MG IVP (06:14)
--- NOTE | 2021-12-19 07:36 | ECG_ITS ---
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 Measurements Intervals Kennan Rate: 71 P: 28 MN: 146 QRS: 77 QRSD: 89 T: 5 QT: 393 QTc: 429 Interpretive Statements SINUS RHYTHM NONSPECIFIC T-WAVE ABNORMALITY Compared to ECG 12/17/2021 11:11:38 Atrial abnormality no longer present T-wave abnormality still present Electronically Signed On 12-19-2021 11:52:12 CDT by Mya Kilgore M.D. [email or web address] Technologyocean springs hospitalRocket Reliefohio valley surgical hospitalFooda/store/[id number]
[2021-12-19] MEDS: tamsulosin 0.4 mg Capsule PO (08:21)
[2021-12-19] MEDS: atorvastatin 40 mg Tablet 20 MG PO (08:21)
[2021-12-19] MEDS: sotalol 80 mg Tablet PO (08:21)
[2021-12-19] MEDS: pantoprazole DR 40 mg Tablet PO (08:22)
[2021-12-19] MEDS: aspirin 81 mg EC Tablet PO (08:22)
--- NOTE | 2021-12-19 09:07 | PM.PN ---
Subjective Subjective: Patient has been moved to the [facility] floor. Uneventful last 24 hours. Stress test was negative for ischemia. He remains in sinus rhythm. I began Betapace 80 mg twice daily starting last night. His EKG this morning reveals sinus rhythm with a corrected QT interval of 429 ms. His echocardiogram revealed normal left ventricular function. He is feeling well this morning. His creatinine yesterday was down to 1.1 and today it is 1.0. His glomerular filtration rate is up to 75. Vitals/I&O/Wt Last Vital Signs Temp 97.7 F 12/19/21 08:00 Pulse 71 12/19/21 08:00 Resp 17 12/19/21 08:00 BP 157/103 12/19/21 08:00 Pulse Ox 94 12/19/21 08:00 O2 Del Method 12/19/21 08:00 12/18/21 12/19/21 12/19/21 22:59 06:59 14:59 Intake Total 480 / 480 Balance 480 / 480 Weight last 48 hrs Weight 177 lb Weight 173 lb Weight 175 lb Physical Exam Narrative: GENERAL: In general he looks and feels well today HEENT: Exam within normal limits. NECK: Supple without jugular vein distention. The carotid upstroke is normal without bruits. BACK: Exam normal. LUNGS: Clear. HEART: Regular rate and rhythm. ABDOMEN: Benign without organomegaly or tenderness. EXTREMITIES: No edema. NEUROLOGIC: Exam normal. SKIN: Unremarkable. Data : 12/18/21 07:38 12/19/21 04:48 A&P Assessment and plan (1) Acute kidney injury: (2) Elevated troponin: (3) Arrhythmia: (4) Current every day smoker: (5) Atrial fibrillation: (6) HTN (hypertension): (7) AAA (abdominal aortic aneurysm): (8) Mixed hyperlipidemia: (9) CAD in [place] artery: Plan As long as he continues to do well he can probably go home today. He should be started on an anticoagulant. He should see the nurse practitioner in the clinic in 7 to 10 days to check a twelve-lead EKG to assess the QT interval and to make sure that he is maintaining sinus rhythm. Attestations Medical Necessity Statement*: Hospitalization for wide-complex tachycardia. 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
--- NOTE | 2021-12-19 09:54 | PM.DCS ---
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 A wide-complex tachycardia was noted. Ultimately, this was thought to be most likely atrial fibrillation with aberrant conduction through left bundle after discussion with cardiology regarding history, presentation, laboratory, rhythm strips. He was anticoagulated and troponins were followed. Nuclear stress test was done which demonstrated no reversible ischemia. He was initiated on sotalol, and followed closely. QT interval the following day demonstrated no prolongation. On December 19 it was thought he could be discharged home. I discussed with cardiology the plan in detail and he will follow-up in approximately 7 days with cardiology clinic for repeat EKG. He can follow-up with his primary in 4 to 7 days. He was started on Eliquis, sotalol. His diltiazem and beta-mo were discontinued. For blood pressure Norvasc, 5 mg a day was initiated. He had a chance to ask questions, risks of Eliquis and medication were described to him, and he agreed with plan. Physical Exam Narrative: General exam no distress Neck is supple no lymphadenopathy or thyromegaly Cardiovascular regular rate and rhythm without murmur Lungs clear Abdomen soft with positive bowel sounds Extremities no cyanosis clubbing or edema Skin no rash Discharge Data Studies Completed and Pending Completed Studies During Hospitalization Category Date Time Status Cardiac Stress Test MIBI [Sestamibi Stress Test Request Exams 12/18/21 08:04 Completed ] Routine XR chest 1V portable [id number] Stat Exams 12/17/21 10:38 Completed NM arabella perf SPECT r/s* [id number] Routine Nuc Med 12/18/21 08:07 Completed CV. echo complete* [id number] Routine Ultrasound 12/17/21 12:25 Completed Radiology Impressions Chest X-Ray 12/17/21 10:38 IMPRESSION: No acute findings. Laboratory Results WBC 6.8 10^3/uL (4.0-10.0) 12/18/21 07:38 RBC 4.67 10^6/uL (4.1-5.3) 12/18/21 07:38 Hgb 12.6 g/dL (11.7-16.6) 12/18/21 07:38 Hct 39.2 % (42.0-52.0) L 12/18/21 07:38 MCV 83.9 fl (80-94) 12/18/21 07:38 MCH 27.0 pg (28.0-34.0) L 12/18/21 07:38 MCHC 32.1 g/dL (30.0-36.0) 12/18/21 07:38 RDW 16.0 % (12.1-15.1) H 12/18/21 07:38 Plt Count 184 10^3/cmm (130-400) D 12/18/21 07:38 MPV 11.1 fL (7.4-10.4) H 12/18/21 07:38 Neut % (Auto) 39.5 % 12/18/21 07:38 Lymph % (Auto) 43.8 % 12/18/21 07:38 [place] % (Auto) 8.4 % 12/18/21 07:38 Eos % (Auto) 6.1 % 12/18/21 07:38 Baso % (Auto) 1.9 % 12/18/21 07:38 Neut # (Auto) 2.67 10^3/uL (1.8-7.7) 12/18/21 07:38 Lymph # (Auto) 3.0 10^3/uL (0.8-4.8) 12/18/21 07:38 [place] # (Auto) 0.6 10^3/uL (0.2-0.9) 12/18/21 07:38 Eos # (Auto) 0.4 10^3/uL (0.0-0.8) 12/18/21 07:38 Baso # (Auto) 0.1 10^3/uL (0.0-0.1) 12/18/21 07:38 Nucleated RBC % (auto) 0 % 12/18/21 07:38 Nucleated RBCs # 0.0 /100WBC 12/18/21 07:38 PT 14.10 SECONDS (12.1-14.9) 12/17/21 10:40 INR 1.06 (0.8-1.2) 12/17/21 10:40 APTT 26.7 SECONDS (23.9-36.7) 12/17/21 10:40 Sodium 139 mmol/L (136-145) 12/19/21 04:48 Potassium 4.3 mmol/L (3.5-5.1) 12/19/21 04:48 Chloride 107 mmol/L (98-107) 12/19/21 04:48 Carbon Dioxide 25 mmol/L (22-29) 12/19/21 04:48 Anion Gap 11.3 (5-19) 12/19/21 04:48 BUN 19 mg/dL (8-23) 12/19/21 04:48 Creatinine 1.0 mg/dL (0.7-1.2) 12/19/21 04:48 GFR Calculation 75.0 mL/min (90-130) L 12/19/21 04:48 Glucose 85 mg/dL (65-115) 12/19/21 04:48 Calculated Osmolality 290 mOsm/kg (285-295) 12/19/21 04:48 Calcium 8.7 mg/dL (8.5-10.5) 12/19/21 04:48 Magnesium 1.7 mg/dL (1.7-2.3) 12/19/21 04:48 Total Bilirubin 0.3 mg/dL (0.15-1.2) 12/18/21 07:38 AST 13 U/L (0-40) 12/18/21 07:38 ALT 8 U/L (0-41) 12/18/21 07:38 Alkaline Phosphatase 80 U/L (40-130) 12/18/21 07:38 Troponin T Baseline 32 ng/L (0-15) H 12/17/21 10:40 Troponin T 120 Minute 26.68 ng/L (0-15) H 12/17/21 12:33 Delta Troponin T -5.32 ABS# (0-10) L 12/17/21 12:33 Troponin T Hi Sens 6Hr 62.21 ng/L (0-15) H 12/17/21 16:38 Troponin T Hi Sens 6Hr Delta 30.21 ng/L (0-12) H* 12/17/21 16:38 NT-Pro-B Natriuret Pep 98808 pg/mL (0-125) H 12/17/21 10:40 Total Protein 5.8 g/dL (6.6-8.7) L D 12/18/21 07:38 Albumin 3.2 g/dL (3.5-5.2) L 12/18/21 07:38 Globulin 2.6 g/dL (1.3-4.6) 12/18/21 07:38 TSH 1.76 uIU/mL (0.27-4.20) 12/17/21 10:40 Urine Color Yellow (Yellow) 12/17/21 14:26 Urine Appearance Clear (CLEAR) 12/17/21 14:26 Urine pH 5 (5-7) 12/17/21 14:26 Ur Specific [place] 1.020 (1.005-1.030) 12/17/21 14:26 Urine Protein Neg (Negative) 12/17/21 14:26 Urine Glucose (UA) Norm (Normal) 12/17/21 14:26 Urine Ketones Negative (Negative) 12/17/21 14:26 Urine Blood Neg (Negative) 12/17/21 14:26 Urine Nitrate Negative (Negative) 12/17/21 14:26 Urine Bilirubin Neg (Negative) 12/17/21 14:26 Urine Urobilinogen Norm mg/dL (Negative) 12/17/21 14:26 Ur Leukocyte Esterase Negative (Negative) 12/17/21 14:26 Urine RBC None /hpf (0-2) 12/17/21 14:26 Urine WBC None /hpf (0-5) 12/17/21 14:26 Ur Squamous Epith Cells None /hpf (0-5) 12/17/21 14:26 Amorphous Sediment Not Reportable 12/17/21 14:26 Urine Bacteria Trace /hpf (NONE) 12/17/21 14:26 Vitals Last Vital Signs Temp 97.7 F 12/19/21 08:00 Pulse 71 12/19/21 08:00 Resp 17 12/19/21 08:00 BP 157/103 12/19/21 08:00 Pulse Ox 94 12/19/21 08:00 O2 Del Method 12/19/21 08:00 Discharge Plan Discharge Patient Disposition: Home Condition: Stable Prescriptions: New sotalol 80 mg Tablet 80 mg PO BID@0900,2100 Qty: 60 0RF Eliquis 5 mg Tablet 5 mg PO BID@0900,2100 Qty: 60 0RF aspirin 81 mg Tablet,Delayed Release (Dr/Ec) 81 mg PO DAILY Qty: 30 0RF amlodipine 5 mg Tablet 5 mg PO DAILY Qty: 30 0RF Continued tamsulosin 0.4 mg capsule 0.4 mg PO BID 90 Days Qty: 180 0RF atorvastatin 20 mg tablet 20 mg PO DAILY 30 Days Qty: 30 6RF bupropion HCl 150 mg tablet extended release 24 hr 150 mg PO DAILY prednisone 5 mg tablet 5 mg PO DAILY PRN (Reason: flare ups) Label Comments: takes for RA flare ups ondansetron HCl 4 mg tablet 4 mg PO TID PRN (Reason: Nausea And Vomiting) Label Comments: Prescribed for after his back surgery has never taken Discontinued hydroxychloroquine 200 mg tablet 200 mg PO BID Hold Instructions: Patient No Longer Taking diltiazem HCl 120 mg capsule,ext.rel 24h degradable 120 mg PO DAILY hydrochlorothiazide 12.5 mg tablet 12.5 mg PO DAILY Hold Instructions: Patient No Longer Taking clopidogrel 75 mg tablet 75 mg PO DAILY 30 Days Qty: 30 3RF Hold Instructions: Patient No Longer Taking Discharge Orders: Discharge Order (Routine); Ordered 12/19/21 Ordered By: Cesar Chan Referrals: Christie Saravia FNP [Nurse Practitioner] - 7-10 days (Obtain twelve-lead EKG to assess QT interval and rhythm. Sure medications are being taken appropriately and well-tolerated.) Radha Brice MD [Primary Care Provider] - 4-7 days Discharge Diet: Cardiac Discharge Activity: Increase activity as tolerated Patient Instructions: Apixaban (By mouth), Opioid Safety Activity Restrictions/Additional Instructions: Take all medicine as prescribed. Follow-up with cardiology clinic and your primary care provider. If you have frequent nosebleeds, blood in your stool, black or tarry stool notify somebody immediately. Note the instructions regarding Eliquis, and precautions. Return, notify cardiology if recurrent palpitations. 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
[2021-12-19] MEDS: amlodipine 5 mg Tablet PO (10:01)
--- NOTE | 2021-12-19 13:59 | PC.NURSE ---
discharge meds provided by meds to beds program.discharge instructions given and explain.pt verb understanding of instructions.discharged via w/ to exit at 1330.family to drive pt home.
== END 2021-12-19 13:30 | disposition home or self-care (01) | DRG 309 ==
LOC: ER 12:54 → ICU 15:28 → MEDSURG 12-18 15:13
PROVIDERS: Admitting Provider Internal Medicine Cardiovascular Disease; Emergency Provider Emergency Medicine; PCP Family Medicine; Visit Provider Internal Medicine
DX: I48.91 Unspecified atrial fibrillation (principal); N17.9 Acute kidney failure, unspecified; R77.8 Other specified abnormalities of plasma proteins; F17.200 Nicotine dependence, unspecified, uncomplicated; I12.9 Hypertensive chronic kidney disease with stage 1 through stage 4 chronic kidney disease, or unspecified chronic kidney disease; N18.32 Chronic kidney disease, stage 3b; I71.40 Abdominal aortic aneurysm, without rupture, unspecified; E78.2 Mixed hyperlipidemia; I25.10 Atherosclerotic heart disease of native coronary artery without angina pectoris; N40.0 Benign prostatic hyperplasia without lower urinary tract symptoms; B19.20 Unspecified viral hepatitis C without hepatic coma; M06.9 Rheumatoid arthritis, unspecified; I44.7 Left bundle-branch block, unspecified; J44.9 Chronic obstructive pulmonary disease, unspecified; F15.11 Other stimulant abuse, in remission; Z86.19 Personal history of other infectious and parasitic diseases; Z95.5 Presence of coronary angioplasty implant and graft; Z79.52 Long term (current) use of systemic steroids
CPT/HCPCS: 36415; 71045; 78452; 80048; 80053; 81001; 83735; 83880; 84443; 84484; 85025; 85610; 85730; 93005; 93017; 93306; 96365; 96372; 96375; 99285; 99291; A4222; A9500; J0282; J1650; J2250; J2270; J2785; J7030; J7040

== ENCOUNTER → 2021-12-25 09:22 | Outpatient (BNVA) | payer MEDICARE, MEDICAID, SELFPAY | PROVIDERS: PCP Family Medicine; Visit Provider Nurse Practitioner Family | DX: I48.91 Unspecified atrial fibrillation (principal) | CPT/HCPCS: 93005; 99213; 99214 ==

== ENCOUNTER 2022-01-13 12:27 | Outpatient (CLI) | payer MEDICARE, MEDICAID, SELFPAY ==
--- NOTE | 2022-01-13 13:15 | CT_ITS ---
WS: [id number] LDCT LUNG CANCER SCREENING TECHNIQUE: Noncontrast CT of the chest with coronal and sagittal reformatted images. CLINICAL INFORMATION: screening COMPARISON: None. DLP: 80.39 mGy.cm DIvol: Mean CTDIvol: 1.60 (mGy) All CT scans at [facility] use at least one of these dose optimization techniques: automat ed exposure control; mA and/or kV adjustment per patient size (includes targeted exams where dose is matched to clinical indication); or iterative reconstruction. FINDINGS:A few calcified granulomas. One or 2 tiny 2 mm nodules in the RIGHT upper lobe. No suspiciou s pulmonary parenchymal abnormalities. Bibasilar atelectasis. Interstitial thickening in the lung bases. Mild aortic calcification. Coronary calcification. No mediastinal or hilar lymphadenopathy. No axillary lymphadenopathy. Cholelithiasis. Adrenal glands are normal. Normal GE junction. CT/CT lung screening [id number] IMPRESSION: LUNG-RADS: 2-Benign Appearance or Behavior FOLLOW UP: 12 Month: Continue annual screening with LDCT
== END 2022-01-13 12:28 | disposition home or self-care (01) ==
LOC: RAD 12:30
PROVIDERS: PCP Family Medicine; Visit Provider Nurse Practitioner Family
DX: Z12.2 Encounter for screening for malignant neoplasm of respiratory organs (principal); F17.200 Nicotine dependence, unspecified, uncomplicated; R05.3 Chronic cough
CPT/HCPCS: 71271

== ENCOUNTER → 2022-04-03 13:31 | Outpatient (BNVA) | payer MEDICARE, MEDICAID, SELFPAY | PROVIDERS: PCP Family Medicine; Visit Provider Nurse Practitioner Family | DX: R30.0 Dysuria (principal); I10 Essential (primary) hypertension; N40.0 Benign prostatic hyperplasia without lower urinary tract symptoms; I48.91 Unspecified atrial fibrillation | CPT/HCPCS: 80053; 80061 ==

== ENCOUNTER 2022-05-21 14:58 | Emergency (ER) | payer MEDICARE, MEDICAID, SELFPAY ==
[2022-05-21] VITALS (39 sets, daily range): BP systolic 110–157; BP diastolic 75–103; PULSE 57–75; RESP 15–26; TEMP 36.5; O2SAT 92–98
--- NOTE | 2022-05-21 15:01 | W.ED.CHESTPA ---
HPI - Chest Pain General: Chief Complaint: Chest Pain Stated Complaint: CHEST PAIN LOW BP Time Seen by Provider: 05/21/22 15:01 History of Present Illness: Mr. Carr is a 66-year-old gentleman with significant past medical history of SVT, hypertension, hyperlipidemia, CAD, AR, AAA, CKD presenting to the emergency department for episode of SVT associated with chest pain and low blood pressure. He reports being at his baseline health the past few days and had sudden onset of symptoms while sitting on the edge of his bed. He had to go to clinic anyways and when he showed up there was found to be in SVT with hypotension. Notes substernal chest pressure associated with this as well as shortness of breath, lightheadedness, radiation of pain to the left arm, generalized malaise. Intensity when this was present was moderate to severe. Symptoms are currently significantly improved and EMS had successful chemical cardioversion with 6 mg adenosine. No other specific changes in health, exacerbating, or alleviating factors identified. Onset (ago): hour(s) Timing of current episode: now resolved Prior episodes: Yes Onset: during rest Pain location: substernal Pain radiation: left arm Severity: moderate Quality: aching and heaviness Relieving factors: other Exacerbating factors: exertion Associated symptoms: Reports dyspnea, nausea and other Review of Systems General: Reports: 10 or more systems reviewed and unremarkable except in HPI and below Resp: Reports: dyspnea GI: Reports: nausea PFSH ED PFSH: Medical History AAA (abdominal aortic aneurysm) Atrial fibrillation BPH (benign prostatic hyperplasia) CAD in [place] artery Current every day smoker Hepatitis C Reports this has not been completely treated. HTN (hypertension) Mixed hyperlipidemia Rheumatoid arthritis Surgical History Stented coronary artery Family History Other CAD (coronary artery disease) Dementia Social History Smoking and tobacco status: current every day smoker Alcohol intake: former Desire information about substance/drug rehabilitation?: Yes Counseling given: Yes (given information and phone number for [facility] in [place] ) Type of substance drug use counseling provided: other Other substance/drug use counseling details: phone number [phone] Lives independently: No Marital status: / service: No Current occupational status: disabled Current gender identity: Male Physical Exam Const: COMMON NORMALS: alert GENERAL APPEARANCE: cooperative and well developed HENMT: COMMON NORMALS: normocephalic and atraumatic HEAD & SCALP: normocephalic and atraumatic Eye: COMMON NORMALS: conjunctivae normal CONJUNCTIVA: Yes conjunctivae normal SCLERA: sclerae normal Neck/C-Spine: COMMON NORMALS: supple GENERAL: Yes trachea midline Resp: COMMON NORMALS: clear to auscultation bilaterally EFFORT & INSPECTION: Yes able to speak in complete sentences AUSCULTATION: clear to auscultation bilaterally Cardio: COMMON NORMALS: regular rate and regular rhythm RATE: regular rate RHYTHM: regular rhythm GI: COMMON NORMALS: Soft to palpation PALPATION: Yes Soft to palpation and No Tenderness to palpation present (GI) Extremity: GENERAL: Yes normal exam except as noted and No edema Neuro: COMMON NORMALS: moves all extremities SENSORIUM/ORIENTATION: Yes alert and No Orientation impaired Psych: COMMON NORMALS: mental status grossly normal and Normal thought process present THOUGHT PROCESS: Normal thought process present Course Vital Signs: Vital signs: Vital Signs Temperature 97.7 F 05/21/22 15:03 Pulse Rate 75 05/21/22 18:40 Respiratory Rate 25 H 05/21/22 18:40 Blood Pressure 110/81 05/21/22 18:30 Pulse Oximetry 98 05/21/22 18:40 Oxygen Delivery Me thod Room Air 05/21/22 18:40 MDM - Chest Pain Medical Decision Making 66-year-old gentleman presenting to the emergency room and for arrhythmia that has improved with EMS treatment. EKG disintegrates sinus rhythm with normal axis and intervals, no STEMI. Labs with no significant hematologic or metabolic abnormality to explain symptoms, BNP is mildly elevated. I expect that the intermediate range to her delta troponin elevation is secondary to demand ischemia. No UTI. Chest x-ray negative for lobar consolidation or pneumothorax. Case discussed with cardiology. Plan to add metoprolol. Etiology of patient's symptoms was arrhythmia secondary to arrhythmia underlying disorder. Patient is comfortable with continued outpatient management. The results of ED evaluation were discussed with the patient including prescriptions and/or symptomatic cares (if applicable) including appropriate and responsible use, followup plan, and return precautions. The patient verbalized understanding and felt safe for discharge. Medical Records I reviewed the patient's medical records. Lab Data I reviewed the patient's lab results. 05/21/22 15:30 05/21/22 15:30 Radiology Impressions Chest X-Ray 05/21/22 15:05 IMPRESSION: No acute chest abnormality. Laboratory Results WBC 9.6 10^3/uL (4.0-10.0) 05/21/22 15:30 RBC 5.19 10^6/uL (4.1-5.3) 05/21/22 15:30 Hgb 14.9 g/dL (11.7-16.6) 05/21/22 15: Hct 45.3 % (42.0-52.0) 05/21/22 15: MCV 87.3 fl (80-94) 05/21/22 15:30 MCH 28.7 pg (28.0-34.0) 05/21/22 15: MCHC 32.9 g/dL (30.0-36.0) 05/21/22 15:30 RDW 15.7 % (12.1-15.1) H 05/21/22 15:30 Plt Count 189 10^3/cmm (130-400) 05/21/22 15:30 MPV 10.5 fL (7.4-10.4) H 05/21/22 15:30 Neut % (Auto) 62.1 % 05/21/22 15:30 Lymph % (Auto) 26.9 % 05/21/22 15:30 [place] % (Auto) 6.2 % 05/21/22 15:30 Eos % (Auto) 3.1 % 05/21/22 15:30 Baso % (Auto) 1.3 % 05/21/22 15:30 Neut # (Auto) 5.97 10^3/uL (1.8-7.7) 05/21/22 15:30 Lymph # (Auto) 2.6 10^3/uL (0.8-4.8) 05/21/22 15:30 [place] # (Auto) 0.6 10^3/uL (0.2-0.9) 05/21/22 15:30 Eos # (Auto) 0.3 10^3/uL (0.0-0.8) 05/21/22 15:30 Baso # (Auto) 0.1 10^3/uL (0.0-0.1) 05/21/22 15:30 Nucleated RBC % (auto) 0 % 05/21/22 15:30 Nucleated RBCs # 0.0 /100WBC 05/21/22 15:30 Sodium 144 mmol/L (136-145) 05/21/22 15:30 Potassium 3.6 mmol/L (3.5-5.1) 05/21/22 15:30 Chloride 111 mmol/L (98-107) H 05/21/22 15:30 Carbon Dioxide 26 mmol/L (22-29) 05/21/22 15:30 Anion Gap 10.6 (5-19) 05/21/22 15:30 BUN 19 mg/dL (8-23) 05/21/22 15:30 Creatinine 1.2 mg/dL (0.7-1.2) 05/21/22 15:30 GFR Calculation 60.8 mL/min (90-130) L 05/21/22 15:30 Glucose 76 mg/dL (65-115) 05/21/22 15:30 Calculated Osmolality 299 mOsm/kg (285-295) H 05/21/22 15:30 Calcium 8.5 mg/dL (8.5-10.5) 05/21/22 15:30 Magnesium 1.8 mg/dL (1.7-2.3) 05/21/22 15:30 Total Bilirubin 0.3 mg/dL (0.15-1.2) 05/21/22 15:30 AST 11 U/L (0-40) 05/21/22 15:30 ALT 10 U/L (0-41) 05/21/22 15:30 Alkaline Phosphatase 64 U/L (40-130) 05/21/22 15:30 Troponin T Baseline 8 ng/L (0-15) 05/21/22 15:30 Troponin T 120 Minute 13.99 ng/L (0-15) 05/21/22 17:42 Delta Troponin T 5.99 ABS# (0-10) 05/21/22 17:42 NT-Pro-B Natriuret Pep 490 pg/mL (0-125) H 05/21/22 15:30 Total Protein 6.3 g/dL (6.6-8.7) L 05/21/22 15:30 Albumin 3.5 g/dL (3.5-5.2) 05/21/22 15:30 Globulin 2.8 g/dL (1.3-4.6) 05/21/22 15:30 TSH 0.91 uIU/mL (0.27-4.20) 05/21/22 15:30 Urine Color Yellow (Yellow) 05/21/22 17:35 Urine Appearance Clear (CLEAR) 05/21/22 17:35 Urine pH 6 (5-7) 05/21/22 17:35 Ur Specific [place] 1.015 (1.005-1.030) 05/21/22 17:35 Urine Protein Neg (Negative) 05/21/22 17:35 Urine Glucose (UA) Norm (Normal) 05/21/22 17:35 Urine Ketones Negative (Negative) 05/21/22 17:35 Urine Blood Trace (Negative) H 05/21/22 17:35 Urine Nitrate Negative (Negative) 05/21/22 17:35 Urine Bilirubin Neg (Negative) 05/21/22 17:35 Urine Urobilinogen Norm mg/dL (Negative) 05/21/22 17:35 Ur Leukocyte Esterase Negative (Negative) 05/21/22 17:35 Urine RBC Rare /hpf (0-2) 05/21/22 17:35 Urine WBC None /hpf (0-5) 05/21/22 17:35 Ur Squamous Epith Cells None /hpf (0-5) 05/21/22 17:35 Amorphous Sediment Not Reportable 05/21/22 17:35 Urine Bacteria None /hpf (NONE) 05/21/22 17:35 Discharge Plan Discharge Patient Disposition: Home Clinical Impression: Tachycardia, unspecified, Chest pain Condition: Stable Prescriptions: New metoprolol tartrate 25 mg tablet 25 mg PO BID Qty: 60 1RF No Action amlodipine 5 mg tablet 5 mg PO DAILY 90 Days Qty: 90 1RF atorvastatin 20 mg tablet 20 mg PO DAILY 90 Days Qty: 90 1RF bupropion HCl 150 mg tablet extended release 24 hr 150 mg PO DAILY 90 Days Qty: 90 1RF sotalol 80 mg tablet 80 mg PO BID@0900,2100 90 Days Qty: 180 1RF tamsulosin 0.4 mg capsule 0.8 mg PO BID 90 Days Qty: 360 1RF pantoprazole [Protonix] 40 mg tablet,delayed release (DR/EC) 40 mg PO DAILY 90 Days Qty: 90 1RF Eliquis 5 mg tablet 5 mg PO BID@0900,2100 90 Days Qty: 90 1RF prednisone 5 mg tablet 5 mg PO DAILY Patient Comments: takes for RA flare ups aspirin 81 mg tablet,delayed release (DR/EC) 81 mg PO DAILY Discharge Orders: Discharge ED (Routine); Ordered 05/21/22 Ordered By: Ed Carpenter Referrals: Radha Brice MD [Primary Care Provider] - Discharge Diet: Usual diet Discharge Activity: Resume usual activity Patient Instructions: Supraventricular Tachycardia (ED), Chest Pain (ED) Activity Restrictions/Additional Instructions: Thank you for visiting the emergency department. You were seen and evaluated for an episode of racing heart. The exact cause of your symptoms is unclear though likely related to underlying arrhythmia. In discussion with cardiology we believe that continued outpatient management is appropriate. I will add metoprolol to your medication regimen. Please continue your other medications as prescribed. Watch for side effects such as heart rate that is too slow, fainting, low blood pressure, and return to the emergency department if you experience these. Please follow-up with your primary care provider. I will message case management for cardiology follow-up. Return to the emergency department for anything else that you are concerned about and feel needs emergency department evaluation. Coding Level of Care Code ED County Program Technician for Ashleigh Villalpando
--- NOTE | 2022-05-21 15:05 | ECG_ITS ---
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 Measurements Intervals [place] Rate: 69 P: -24 [place]: 124 QRS: 146 QRSD: 88 T: 148 QT: 402 QTc: 433 Interpretive Statements SINUS RHYTHM POSSIBLE RIGHT VENTRICULAR HYPERTROPHY [SOME/ALL OF: PROMINENT R IN V1, LATE TRANSITION, RAD, ADALGISA, SSS] MINIMAL ST DEPRESSION [0.025+ mV ST DEPRESSION] Compared to ECG 12/19/2021 08:35:04 ST (T wave) deviation now present T-wave abnormality no longer present Electronically Signed On 05-21-2022 16:31:02 CDT by Gilles Christine M.D. [email or web address].[id number]
--- NOTE | 2022-05-21 15:05 | XR_ITS ---
WS: [id number] XR chest 1V portable [id number] REASON FOR EXAM: cp, svt FINDINGS: Moderate tortuosity and ectasia of the thoracic aorta. Normal heart size. Calcified granulomatous disease in both hemithoraces. No acute/subacute pulmonary parenchymal or pleural abnormality. Multiple old left rib fractures. Mild degenerative spondylosis in the mid and lower thoracic spine. XR/XR chest 1V portable [id number] IMPRESSION: No acute chest abnormality.
[2022-05-21 15:41] LABS: Basophils # 0.1 10^3/uL (0.0-0.1); Basophils % 1.3 %; Eosinophils # 0.3 10^3/uL (0.0-0.8); Eosinophils % 3.1 %; Hematocrit 45.3 % (42.0-52.0); Hemoglobin 14.9 g/dL (11.7-16.6); Lymphocytes # 2.6 10^3/uL (0.8-4.8); Lymphocytes % 26.9 %; Mean Corpuscular HGB Conc 32.9 g/dL (30.0-36.0); Mean Corpuscular Hemoglobin 28.7 pg (28.0-34.0); Mean Corpuscular Volume 87.3 fl (80-94); Mean Platelet Volume 10.5 fL (7.4-10.4); Monocytes # 0.6 10^3/uL (0.2-0.9); Monocytes % 6.2 %; Neutrophils # 5.97 10^3/uL (1.8-7.7); Neutrophils % 62.1 %; Nucleated Red Blood Cells % 0 %; Platelet Count 189 10^3/cmm (130-400); Red Blood Count 5.19 10^6/uL (4.1-5.3); Red Cell Distribution Width 15.7 % (12.1-15.1); White Blood Count 9.6 10^3/uL (4.0-10.0)
[2022-05-21 16:16] LABS: Alanine Aminotransferase 10 U/L (0-41); Albumin Level 3.5 g/dL (3.5-5.2); Alkaline Phosphatase 64 U/L (40-130); Anion Gap 10.6 (5-19); Aspartate Amino Transferase 11 U/L (0-40); Blood Urea Nitrogen 19 mg/dL (8-23); Calcium 8.5 mg/dL (8.5-10.5); Carbon Dioxide 26 mmol/L (22-29); Chloride 111 mmol/L (98-107); Globulin 2.8 g/dL (1.3-4.6); Glomerular Filtration Rate 60.8 mL/min (90-130); Glucose 76 mg/dL (65-115); Magnesium 1.8 mg/dL (1.7-2.3); NT Pro B Type Natriuretic Pept 490 pg/mL (0-125); Osmolality Calculated 299 mOsm/kg (285-295); Potassium 3.6 mmol/L (3.5-5.1); Sodium 144 mmol/L (136-145); Thyroid Stimulating Hormone 0.91 uIU/mL (0.27-4.20); Total Bilirubin 0.3 mg/dL (0.15-1.2); Total Protein 6.3 g/dL (6.6-8.7)
[2022-05-21 16:47] LABS: Troponin(5th) Baseline 8 ng/L (0-15)
--- NOTE | 2022-05-21 17:40 | ECG_ITS ---
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 Measurements Intervals [place] Rate: 60 P: -2 [place]: 167 QRS: 65 QRSD: 82 T: 73 QT: 408 QTc: 411 Interpretive Statements SINUS RHYTHM Compared to ECG 05/21/2022 15:14:28 Atrial abnormality no longer present ST (T wave) deviation no longer present Electronically Signed On 05-21-2022 23:39:51 CDT by Gilles Christine M.D. [id number]
[2022-05-21 18:17] LABS: Add Urine Microscopic? YES; Bilirubin Urine Neg (Negative); Blood Urine Trace (Negative); Glucose Urine UA Norm (Normal); Ketones Urine Negative (Negative); Leukocyte Esterase Urine Negative (Negative); Nitrate Urine Negative (Negative); Protein Urine Neg (Negative); Specific Gravity, Urine 1.015 (1.005-1.030); Urine Appearance Clear (CLEAR); Urine Color Yellow (Yellow); Urobilinogen Urine Norm (Negative); pH Urine 6 (5-7)
[2022-05-21 18:20] LABS: RBC Urine RARE /hpf (0-2)
[2022-05-21 18:25] LABS: Troponin 5 2HR 13.99 ng/L (0-15)
[2022-05-21 18:27] LABS: Troponin 5 2HR Delta 5.99 ABS# (0-10)
--- NOTE | 2022-05-22 10:13 | DCPLANNER ---
Addendum entered by Bijal Hurd 06/17/22 11:36: Patient had a follow up appointment scheduled with heart care - patient did attend appointment. Addendum entered by Bijal Hurd 05/26/22 09:50: Patient has a follow up appointment scheduled for Thursday, June 16, 2022 at 1:[address] Laurent at [facility]. Original Note: manager work had message to schedule a follow up appointment for patient with cardiology. manager work sent patients information to the front office staff at [facility]. Patients information will be printed and reviewed. Clinic will call patient with appointment information.
== END 2022-05-21 18:48 | disposition home or self-care (01) ==
PROVIDERS: Emergency Provider Emergency Medicine; PCP Family Medicine
DX: R07.9 Chest pain, unspecified (principal); R00.0 Tachycardia, unspecified; Z79.01 Long term (current) use of anticoagulants; Z79.82 Long term (current) use of aspirin; I25.10 Atherosclerotic heart disease of native coronary artery without angina pectoris; Z86.19 Personal history of other infectious and parasitic diseases; I10 Essential (primary) hypertension; E78.2 Mixed hyperlipidemia; F17.210 Nicotine dependence, cigarettes, uncomplicated
CPT/HCPCS: 71045; 80053; 81001; 83735; 83880; 84443; 84484; 85025; 93005; 99285

== ENCOUNTER → 2022-06-16 12:37 | Outpatient (BNVA) | payer MEDICARE, MEDICAID, SELFPAY | PROVIDERS: PCP Family Medicine; Visit Provider Internal Medicine Cardiovascular Disease | DX: I47.1 Supraventricular tachycardia (principal); I12.9 Hypertensive chronic kidney disease with stage 1 through stage 4 chronic kidney disease, or unspecified chronic kidney disease; N18.2 Chronic kidney disease, stage 2 (mild); F17.200 Nicotine dependence, unspecified, uncomplicated; I48.91 Unspecified atrial fibrillation; I71.40 Abdominal aortic aneurysm, without rupture, unspecified; E78.2 Mixed hyperlipidemia; I25.10 Atherosclerotic heart disease of native coronary artery without angina pectoris; B19.20 Unspecified viral hepatitis C without hepatic coma; F15.21 Other stimulant dependence, in remission; Z79.01 Long term (current) use of anticoagulants | CPT/HCPCS: 99213 ==

== ENCOUNTER → 2022-09-01 16:25 | Outpatient (BNVA) | payer MEDICARE, MEDICAID, SELFPAY | PROVIDERS: PCP Family Medicine; Visit Provider Nurse Practitioner Family | DX: R76.8 Other specified abnormal immunological findings in serum (principal); E78.2 Mixed hyperlipidemia; N18.2 Chronic kidney disease, stage 2 (mild); I12.9 Hypertensive chronic kidney disease with stage 1 through stage 4 chronic kidney disease, or unspecified chronic kidney disease | CPT/HCPCS: 80053; 80061; 82105; 86803; 87902 ==

== ENCOUNTER → 2022-09-02 17:13 | Outpatient (BNVA) | payer MEDICARE, MEDICAID, SELFPAY | PROVIDERS: PCP Family Medicine; Visit Provider Nurse Practitioner Family | DX: R76.8 Other specified abnormal immunological findings in serum (principal) | CPT/HCPCS: 87522 ==

== ENCOUNTER 2022-09-22 06:00 | Outpatient (RCR) | payer MEDICARE, MEDICAID, SELFPAY | END 2022-10-15 23:59 | disposition home or self-care (01) | LOC: TPT 06:00 | PROVIDERS: Visit Provider Nurse Practitioner Family | DX: M25.361 Other instability, right knee (principal) | CPT/HCPCS: 97110; 97162 ==

== ENCOUNTER → 2022-12-01 10:27 | Outpatient (BNVA) | payer MEDICARE, MEDICAID, SELFPAY | PROVIDERS: Visit Provider Nurse Practitioner Family | DX: I10 Essential (primary) hypertension (principal); E78.2 Mixed hyperlipidemia; I71.40 Abdominal aortic aneurysm, without rupture, unspecified; I48.91 Unspecified atrial fibrillation; I25.10 Atherosclerotic heart disease of native coronary artery without angina pectoris; F17.200 Nicotine dependence, unspecified, uncomplicated; K21.9 Gastro-esophageal reflux disease without esophagitis; N40.0 Benign prostatic hyperplasia without lower urinary tract symptoms; M06.9 Rheumatoid arthritis, unspecified; N18.32 Chronic kidney disease, stage 3b; M54.50 Low back pain, unspecified | CPT/HCPCS: 80053; 80061 ==

== ENCOUNTER 2023-05-08 12:07 | Emergency (ER) | payer MEDICARE, SELFPAY ==
[2023-05-08 12:08] VITALS: BP 105/75; PULSE 69; RESP 18; TEMP 36.9; O2SAT 96; BMI 25.0
--- NOTE | 2023-05-08 12:10 | XRR_ITS ---
PROCEDURE INFORMATION: Exam: XR Chest Exam date and time: 05/08/2023 12:29 PM Age: 67 years old Clinical indication: Angina pectoris; Prior surgery; Surgery date: 1-6 months; Surgery type: Aaa repair; Renal artery stents; Patient HX: Chest pain; RT shoulder pain; Aaa repair x 2 mo ago TECHNIQUE: Imaging protocol: Radiologic exam of the chest. Views: 1 view. COMPARISON: CR XR chest 1V portable [id number] 05/21/2022 4:05 PM FINDINGS: Lungs: Unremarkable. No consolidation. Pleural spaces: Costophrenic angles are not optimally visualized and small pleural effusions cannot be excluded. No pneumothorax. Heart/Mediastinum: Unremarkable. No cardiomegaly. Bones/joints: There are degenerative changes in the thoracic spine and across the acromioclavicular joints. XR/XR chest 1V portable [id number] IMPRESSION: No acute findings.
--- NOTE | 2023-05-08 12:13 | ECG_ITS ---
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 Measurements Intervals [place] Rate: 69 P: 24 OR: 155 QRS: 65 QRSD: 89 T: 53 QT: 415 QTc: 446 Interpretive Statements SINUS RHYTHM MINIMAL ST DEPRESSION [0.025+ mV ST DEPRESSION] INTERPRETATION BASED ON A DEFAULT AGE OF 40 YEARS Compared to ECG 05/21/2022 17:40:54 ST (T wave) deviation now present Electronically Signed On 05-08-2023 13:45:29 CDT by Gilles Christine M.D. [id number] f
--- NOTE | 2023-05-08 12:28 | XRR_ITS ---
PROCEDURE INFORMATION: Exam: XR Right Shoulder Exam date and time: 05/08/2023 12:31 PM Age: 67 years old Clinical indication: Right; Patient HX: RT shoulder pain-no known injury; Rheumatoid positive; Chest pain; Aaa repair x 2 mo ago TECHNIQUE: Imaging protocol: Radiologic exam of the right shoulder. Views: 2 or more views. COMPARISON: CR (CHEST, ) 05/08/2023 12:29 PM FINDINGS: Bones/joints: There are moderate to severe degenerative changes across the right acromioclavicular joint. Soft tissues: Normal. XR/XR shoulder RT min 2V* [id number] IMPRESSION: Moderate to severe degenerative changes extend across the acromioclavicular joint.
[2023-05-08 12:31] LABS: Basophils # 0.1 10^3/uL (0.0-0.1); Basophils % 1.2 %; Eosinophils # 0.2 10^3/uL (0.0-0.8); Eosinophils % 2.2 %; Hematocrit 40.2 % (37-53); Lymphocytes # 3.3 10^3/uL (0.8-4.8); Lymphocytes % 30.8 %; Mean Corpuscular HGB Conc 31.6 g/dL (30-55); Mean Corpuscular Hemoglobin 26.6 pg (27-33); Mean Corpuscular Volume 84.3 fl (82-101); Mean Platelet Volume 10.7 fL (7.4-10.4); Monocytes # 0.6 10^3/uL (0.2-0.9); Monocytes % 5.5 %; Neutrophils # 6.22 10^3/uL (1.8-7.7); Neutrophils % 58.2 %; Nucleated Red Blood Cells % 0 %; Platelet Count 363 10^3/cmm (157-399); Red Blood Count 4.77 10^6/uL (3.85-5.65); Red Cell Distribution Width 15.3 % (12.1-15.1); White Blood Count 10.71 10^3/uL (3.29-11.43)
--- NOTE | 2023-05-08 12:43 | W.ED.ARRPALP ---
HPI - Arrhythmia/Palpitations General: Chief Complaint: Arrhythmia/Palpitations Stated Complaint: CHEST PAIN Time Seen by Provider: 05/08/23 12:11 History of Present Illness: Patient presents to the ER by EMS with complaints of chest pain and tachycardia, these been going on since yesterday. When EMS arrived there they noticed that he was in a SVT type rhythm with a rate of about 187 bpm. They gave him 150 of amiodarone which slowed his heart rate down to 71 beats a minute and the chest pain went away. Patient is also complaining of right shoulder pain. Patient has rheumatoid arthritis. Patient has had no known trauma to his right shoulder. Patient was also given 50 mcg of fentanyl and route for his shoulder pain. Review of Systems General: Reports: 10 or more systems reviewed and unremarkable except in HPI and below PFSH ED PFSH: Medical History Methamphetamine use disorder, moderate, in early remission Rheumatoid arthritis Hepatitis C Reports this has not been completely treated. CAD in [place] artery Mixed hyperlipidemia AAA (abdominal aortic aneurysm) Current every day smoker BPH (benign prostatic hyperplasia) HTN (hypertension) Atrial fibrillation Surgical History Stented coronary artery Family History Other CAD (coronary artery disease) Dementia Social History Smoking and tobacco/nicotine status: current every day tobacco/nicotine user Alcohol intake: former Substance/Drug Use: current Substance/Drug use frequency: few times a month Lives independently: No Marital status: / service: No Current occupational status: disabled Current gender identity: Male Physical Exam Const: COMMON NORMALS: no acute distress, average body habitus, patient oriented x3, no limitations, healthy appearing, alert and well nourished HENMT: COMMON NORMALS: normocephalic, atraumatic, hearing grossly normal bilaterally, external ears normal, Normal external nose present, moist oral mucous membranes and oropharynx normal HEAD & SCALP: normocephalic and atraumatic NOSE: Normal external nose present EXTERNAL EAR: Yes external ears normal Neck/C-Spine: COMMON NORMALS: no JVD Chest: COMMONS NORMALS: normal inspection of the chest and normal palpation of entire chest wall Resp: COMMON NORMALS: normal respiratory effort, No retractions, No use of accessory muscles and clear to auscultation bilaterally AUSCULTATION: clear to auscultation bilaterally Cardio: COMMON NORMALS: no JVD, regular rate, regular rhythm, S1 normal heart sound present, S2 normal heart sound present, No gallops present (Cardio), No clicks present (Cardio), No murmurs present (Cardio) and No rub (Cardio) RATE: regular rate RHYTHM: regular rhythm HEART SOUNDS: S1 normal heart sound present and S2 normal heart sound present GI: COMMON NORMALS: Normal to inspection, nondistended, normoactive bowel sounds present, Soft to palpation, non-tender, No hepatosplenomegaly present and no masses PALPATION: Yes Soft to palpation and Yes No hepatosplenomegaly present Neuro: COMMON NORMALS: patient oriented x3 SENSORIUM/ORIENTATION: Yes alert Course Vital Signs: Vital signs: Vital Signs Temperature 98.4 F 05/08/23 12:08 Pulse Rate 64 05/08/23 14:32 Respiratory Rate 18 05/08/23 12:08 Blood Pressure 129/92 05/08/23 14:32 Pulse Oximetry 98 05/08/23 14:32 Oxygen Delivery Me thod Room Air 05/08/23 12:08 MDM - Arrhythmia/Palpitations Medical Decision Making Patient lab work done and EKGs and x-rays which is all essentially negative. Or stable for the patient. Patient's rhythm stayed in the sinus rhythm the entire time he was here and he required no more medicine. Patient does already see a metal casket assembler down at [place] who he is going to call Wednesday morning and arrange another follow-up. All findings was discussed with patient and family members and patient be discharged home. Differential Diagnosis Likely supraventricular tachycardia and ventricular tachycardia; Unlikely palpitations, anxiety, sinus tachycardia, artial fibrillation, artial flutter, ventricular premature beats or WPW Medical Records I reviewed the patient's medical records. Lab Data I reviewed the patient's lab results. 05/08/23 12:23 05/08/23 12:23 Radiology Impressions Chest X-Ray 05/08/23 12:10 IMPRESSION: No acute findings. Shoulder X-Ray 05/08/23 12:28 IMPRESSION: Moderate to severe degenerative changes extend across the acromioclavicular joint. Laboratory Results WBC 10.71 10^3/uL (3.29-11.43) 05/08/23 12: RBC 4.77 10^6/uL (3.85-5.65) 05/08/23 12:23 Hgb 12.70 g/dL (11.27-16.99) 05/08/23 12:23 Hct 40.2 % (37-53) 05/08/23 12:23 MCV 84.3 fl (82-101) 05/08/23 12:23 MCH 26.6 pg (27-33) L 05/08/23 12:23 MCHC 31.6 g/dL (30-55) 05/08/23 12:23 RDW 15.3 % (12.1-15.1) H 05/08/23 12:23 Plt Count 363 10^3/cmm (157-399) 05/08/23 12:23 MPV 10.7 fL (7.4-10.4) H 05/08/23 12: Neut % (Auto) 58.2 % 05/08/23 12: Lymph % (Auto) 30.8 % 05/08/23 12:23 [place] % (Auto) 5.5 % 05/08/23 12:23 Eos % (Auto) 2.2 % 05/08/23 12: Baso % (Auto) 1.2 % 05/08/23 12: Neut # (Auto) 6.22 10^3/uL (1.8-7.7) 05/08/23 12:23 Lymph # (Auto) 3.3 10^3/uL (0.8-4.8) 05/08/23 12:23 [place] # (Auto) 0.6 10^3/uL (0.2-0.9) 05/08/23 12:23 Eos # (Auto) 0.2 10^3/uL (0.0-0.8) 05/08/23 12:23 Baso # (Auto) 0.1 10^3/uL (0.0-0.1) 05/08/23 12:23 Nucleated RBC % (auto) 0 % 05/08/23 12:23 Nucleated RBCs # 0.0 /100WBC 05/08/23 12:23 PT 14.90 SECONDS (12.1-14.9) 05/08/23 12:23 INR 1.13 (0.8-1.2) 05/08/23 12:23 Sodium 143 mmol/L (136-145) 05/08/23 12:23 Potassium 3.9 mmol/L (3.5-5.1) 05/08/23 12:23 Chloride 108 mmol/L (98-107) H 05/08/23 12:23 Carbon Dioxide 23 mmol/L (22-29) 05/08/23 12:23 Anion Gap 15.9 (5-19) 05/08/23 12:23 BUN 36 mg/dL (8-23) H 05/08/23 12:23 Creatinine 1.9 mg/dL (0.7-1.2) H 05/08/23 12:23 GFR Calculation 35.6 mL/min (90-130) L 05/08/23 12:23 Glucose 145 mg/dL (65-115) H 05/08/23 12:23 Calculated Osmolality 307 mOsm/kg (285-295) H 05/08/23 12:23 Calcium 8.2 mg/dL (8.5-10.5) L 05/08/23 12:23 Total Bilirubin 0.2 mg/dL (0.15-1.2) 05/08/23 12:23 AST 11 U/L (0-40) 05/08/23 12:23 ALT 8 U/L (0-41) 05/08/23 12:23 Alkaline Phosphatase 84 U/L (40-130) 05/08/23 12:23 Troponin T Baseline 48 ng/L (0-15) H 05/08/23 12:23 Troponin T 120 Minute 56.82 ng/L (0-15) H 05/08/23 14:19 Delta Troponin T 8.82 ABS# (0-10) 05/08/23 14:19 Total Protein 6.1 g/dL (6.6-8.7) L 05/08/23 12:23 Albumin 3.3 g/dL (3.5-5.2) L 05/08/23 12:23 Globulin 2.8 g/dL (1.3-4.6) 05/08/23 12:23 All radiology interpretation(s) finalized by discharge EKG Data EKG 1: I personally reviewed and interpreted this EKG as follows: EKG interpretation date: 05/08/23 EKG interpretation time: 12:13 Interpretation: Ventricular rate 69 bpm, MT interval 155, QRS duration 89, QTc of 434, Other EKG comments: Chest X-Ray 05/08/23 12:10 IMPRESSION: No acute findings. Shoulder X-Ray 05/08/23 12:28 IMPRESSION: Moderate to severe degenerative changes extend across the acromioclavicular joint. Discharge Plan Discharge Patient Disposition: Home Clinical Impression: Ventricular tachycardia, sustained Condition: Stable Prescriptions: No Action Eliquis 5 mg tablet 5 mg PO BID@0900,2100 90 Days Qty: 90 1RF metoprolol tartrate 25 mg tablet 25 mg PO BID Qty: 60 1RF sotalol 80 mg tablet 80 mg PO BID@0900,2100 90 Days Qty: 180 1RF tamsulosin 0.4 mg capsule 0.8 mg PO BID 90 Days Qty: 360 1RF prednisone 5 mg tablet See Rx Instructions .ROUTE .COMPLEX Qty: 30 0RF Dose Instruction: TAKE ONE TABLET BY MOUTH DAILY NEEDED FOR rheumatoid arthritis flare UP Rx Instructions: TAKE ONE TABLET BY MOUTH DAILY NEEDED FOR rheumatoid arthritis flare UP atorvastatin 20 mg tablet 20 mg PO QAM amlodipine 5 mg tablet 5 mg PO QAM aspirin 81 mg tablet,delayed release (DR/EC) 81 mg PO QAM Protonix 40 mg tablet,delayed release (DR/EC) 40 mg PO QAM bupropion HCl 150 mg tablet extended release 24 hr 150 mg PO QAM Discharge Orders: Discharge ED (Routine); Ordered 05/08/23 Ordered By: Ryan Paniagua Referrals: Radha Brice MD [Primary Care Provider] - 1 week Patient Instructions: Supraventricular Tachycardia (ED), Valsalva Maneuver (ED), Tachycardia (ED) Activity Restrictions/Additional Instructions: Please follow-up with your family physician and/or metal casket assembler. You may benefit from medication adjustments or additional medicines. If your heart rate becomes fast not double again please feel free to return to the ER. Coding Level of Care Code ED Electronics Specialist for Ashleigh Villalpando
[2023-05-08 12:44] LABS: INR 1.13 (0.8-1.2)
[2023-05-08 12:48] LABS: Alanine Aminotransferase 8 U/L (0-41); Albumin Level 3.3 g/dL (3.5-5.2); Alkaline Phosphatase 84 U/L (40-130); Blood Urea Nitrogen 36 mg/dL (8-23); Calcium 8.2 mg/dL (8.5-10.5); Carbon Dioxide 23 mmol/L (22-29); Chloride 108 mmol/L (98-107); Globulin 2.8 g/dL (1.3-4.6); Glomerular Filtration Rate 35.6 mL/min (90-130); Glucose 145 mg/dL (65-115); Osmolality Calculated 307 mOsm/kg (285-295); Sodium 143 mmol/L (136-145); Total Bilirubin 0.2 mg/dL (0.15-1.2); Total Protein 6.1 g/dL (6.6-8.7)
[2023-05-08 12:52] LABS: Anion Gap 15.9 (5-19); Potassium 3.9 mmol/L (3.5-5.1)
[2023-05-08 12:53] LABS: Aspartate Amino Transferase 11 U/L (0-40)
[2023-05-08 12:57] LABS: Troponin(5th) Baseline 48 ng/L (0-15)
--- NOTE | 2023-05-08 13:09 | PC.PHAR ---
pt states he takes care of his own medications-pt brought in med bottles-pt states he still takes metoprolol tartrate 25mg one tab bid rx bottle dated 03/11/23
[2023-05-08] MEDS: sodium chloride 0.9% 1,000 ML 999 ML IV (13:18)
[2023-05-08 14:32] VITALS: BP 129/92; PULSE 64; O2SAT 98
--- NOTE | 2023-05-08 14:47 | ECG_ITS ---
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 Measurements Intervals [place] Rate: 66 P: 15 AR: 160 QRS: 66 QRSD: 93 T: 18 QT: 433 QTc: 454 Interpretive Statements SINUS RHYTHM Compared to ECG 05/08/2023 12:13:39 ST (T wave) deviation no longer present Electronically Signed On 05-08-2023 15:57:31 CDT by Gilles Christine M.D. [id number]
[2023-05-08 14:52] LABS: Troponin 5 2HR 56.82 ng/L (0-15); Troponin 5 2HR Delta 8.82 ABS# (0-10)
[2023-05-08 15:59] VITALS: BP 135/95; PULSE 64; O2SAT 98
== END 2023-05-08 16:00 | disposition home or self-care (01) ==
PROVIDERS: Emergency Provider Emergency Medicine; PCP Family Medicine
DX: I47.20 Ventricular tachycardia, unspecified (principal); Z79.01 Long term (current) use of anticoagulants; Z79.82 Long term (current) use of aspirin; Z72.0 Tobacco use; Z86.19 Personal history of other infectious and parasitic diseases; I25.10 Atherosclerotic heart disease of native coronary artery without angina pectoris; E78.2 Mixed hyperlipidemia; I10 Essential (primary) hypertension
CPT/HCPCS: 36415; 71045; 73030; 80053; 84484; 85025; 85610; 93005; 96360; 96361; 99285; J7030

== ENCOUNTER → 2023-05-12 14:45 | Outpatient (BNVA) | payer MEDICARE, SELFPAY | PROVIDERS: PCP Family Medicine; Visit Provider Nurse Practitioner Family | DX: I10 Essential (primary) hypertension (principal); I48.91 Unspecified atrial fibrillation; E78.2 Mixed hyperlipidemia; I71.40 Abdominal aortic aneurysm, without rupture, unspecified; Z12.5 Encounter for screening for malignant neoplasm of prostate; Z23 Encounter for immunization; K21.9 Gastro-esophageal reflux disease without esophagitis; N40.0 Benign prostatic hyperplasia without lower urinary tract symptoms; M06.9 Rheumatoid arthritis, unspecified | CPT/HCPCS: 80053; 80061; 85025; G0103 ==

== ENCOUNTER 2023-08-08 09:11 | Emergency (ER) | payer MEDICARE, SELFPAY ==
--- NOTE | 2023-08-08 09:09 | ECG_ITS ---
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 Measurements Intervals [place] Rate: 69 P: 14 RI: 157 QRS: 63 QRSD: 89 T: 58 QT: 390 QTc: 420 Interpretive Statements SINUS RHYTHM Compared to ECG 05/08/2023 14:47:00 No significant changes Electronically Signed On 08-08-2023 9:56:52 CDT by Micah Laurent M.D. [email or web address]/store/[id number] f
[2023-08-08 09:11] VITALS: BP 148/102; PULSE 70; RESP 17; TEMP 36.4; O2SAT 100; BMI 23.7
--- NOTE | 2023-08-08 09:27 | ED_ITS ---
HPI - Arrhythmia/Palpitations General: Chief Complaint: Arrhythmia/Palpitations Stated Complaint: SVT Time Seen by Provider: 08/08/23 09:12 Source: patient Mode of arrival: ambulatory Limitations: no limitations History of Present Illness: 67-year-old male has history of SVT stat es that he does not like he is in SVT this morning with palpitations patient called EMS they did give him adenosine and he has since converted but given the dressing roughly 30 minutes ago he has been in normal sinus rhythm since then. He denies any pain denies any shortness of breath Associated symptoms: Deny nausea or vomiting Review of Systems Const: Denies: fever(s), chills, body aches or change in appetite ENMT: Denies: throat pain or dental pain Card: Reports: palpitations; Denies: chest pain Resp: Denies: dyspnea GI: Denies: abdominal pain, nausea, vomiting or diarrhea : Denies: dysuria Musc: Denies: neck pain or back pain Skin/Breast: Denies: rash Neuro: Denies: headache(s) PFSH ED PFSH: Medical History Methamphetamine use disorder, moderate, in early remission Rheumatoid arthritis Hepatitis C Reports this has not been completely treated. CAD in [place] artery Mixed hyperlipidemia AAA (abdominal aortic aneurysm) Current every day smoker BPH (benign prostatic hyperplasia) HTN (hypertension) Atrial fibrillation Surgical History Stented coronary artery Family History Other CAD (coronary artery disease) Dementia Social History Smoking and tobacco/nicotine status: current every day tobacco/nicotine user Alcohol intake: former Substance/Drug Use: current Substance/Drug use frequency: few times a month Lives independently: No Marital status: / service: No Current occupational status: disabled Current gender identity: Male Physical Exam Const: COMMON NORMALS: no acute distress, patient oriented x3 and healthy appearing HENMT: COMMON NORMALS: normocephalic and atraumatic HEAD & SCALP: normocephalic and atraumatic Neck/C-Spine: COMMON NORMALS: full ROM and supple Chest: COMMONS NORMALS: normal inspection of the chest Resp: COMMON NORMALS: normal respiratory effort Cardio: COMMON NORMALS: regular rate, regular rhythm and No murmurs present (Cardio) RATE: regular rate RHYTHM: regular rhythm Extremity: COMMON NORMALS: normal to inspection and full ROM Neuro: COMMON NORMALS: patient oriented x3, moves all extremities and no focal motor deficits Psych: COMMON NORMALS: mental status grossly normal, Normal thought process present and cooperative THOUGHT PROCESS: Normal thought process present Skin: COMMON NORMALS: no rashes or lesions noted and no wounds GENERAL SKIN EXAM: no rashes or lesions noted Course Vital Signs: Vital signs: Vital Signs Temperature 97.5 F L 08/08/23 09:11 Pulse Rate 64 08/08/23 10:00 Respiratory Rate 17 08/08/23 09:11 Blood Pressure 135/98 08/08/23 10:00 Pulse Oximetry 99 08/08/23 10:00 Oxygen Delivery Me thod Room Air 08/08/23 10:00 MDM - Arrhythmia/Palpitations Medical Decision Making Patient presents here with SVT he has been converted with adenosine he is in normal sinus rhythm here is stable for discharge he is to follow-up with cardiology return if worsening understands agrees to plan Medical Records I reviewed the patient's medical records. Lab Data I reviewed the patient's lab results. No radiology studies performed this visit EKG Data EKG 1: I personally reviewed and interpreted this EKG as follows: EKG interpretation date: 08/08/23 EKG interpretation time: 09:09 Interpretation: nsr hr 0909 nsr hr [address] or t wave abnormalities qrs 89 qtc 410 Discharge Plan Discharge Patient Disposition: Home Clinical Impression: SVT (supraventricular tachycardia) Condition: Stable Prescriptions: No Action tamsulosin 0.4 mg capsule 0.8 mg PO BID 90 Days Qty: 360 1RF metoprolol tartrate 25 mg tablet 25 mg PO BID Qty: 60 1RF Eliquis 5 mg tablet 5 mg PO BID@0900,2100 90 Days Qty: 90 1RF sotalol 80 mg tablet 80 mg PO BID@0900,2100 90 Days Qty: 180 1RF sulfamethoxazole-trimethoprim [Bactrim DS] 800-160 mg tablet 1 tab PO Q12H 10 Days Qty: 20 0RF prednisone 5 mg tablet See Rx Instructions .ROUTE .COMPLEX Qty: 30 1RF Dose Instruction: TAKE ONE TABLET BY MOUTH DAILY NEEDED FOR rheumatoid arthritis flare UP Rx Instructions: TAKE ONE TABLET BY MOUTH DAILY NEEDED FOR rheumatoid arthritis flare UP atorvastatin 20 mg tablet 20 mg PO QAM amlodipine 5 mg tablet 5 mg PO QAM aspirin 81 mg tablet,delayed release (DR/EC) 81 mg PO QAM Protonix 40 mg tablet,delayed release (DR/EC) 40 mg PO QAM bupropion HCl 150 mg tablet extended release 24 hr 150 mg PO QAM Discharge Orders: Discharge ED (Routine); Ordered 08/08/23 Ordered By: Monique Woods Referrals: Radha Brice MD [Primary Care Provider] - Discharge Diet: Advance as tolerated Discharge Activity: Resume usual activity Patient Instructions: Supraventricular Tachycardia (ED) Coding Level of Care Code ED Receiving Barn Custodian for Ashleigh Villalpando
[2023-08-08 10:00] VITALS: BP 135/98; PULSE 64; O2SAT 99
[2023-08-08 11:09] VITALS: PULSE 87; O2SAT 97
--- NOTE | 2023-08-09 07:21 | DCPLANNER ---
message sent to cardio for er f/u
== END 2023-08-08 11:10 | disposition home or self-care (01) ==
PROVIDERS: Emergency Provider Emergency Medicine; PCP Family Medicine
DX: I47.10 Supraventricular tachycardia, unspecified (principal); Z79.01 Long term (current) use of anticoagulants; Z79.82 Long term (current) use of aspirin; Z72.0 Tobacco use; Z86.19 Personal history of other infectious and parasitic diseases; I25.10 Atherosclerotic heart disease of native coronary artery without angina pectoris; E78.2 Mixed hyperlipidemia; I10 Essential (primary) hypertension
CPT/HCPCS: 93005; 99283

== ENCOUNTER → 2023-08-12 14:12 | Outpatient (BNVA) | payer MEDICARE, SELFPAY | PROVIDERS: PCP Family Medicine; Visit Provider Nurse Practitioner Family | DX: I71.40 Abdominal aortic aneurysm, without rupture, unspecified (principal); I10 Essential (primary) hypertension; I25.10 Atherosclerotic heart disease of native coronary artery without angina pectoris; E78.2 Mixed hyperlipidemia; I48.91 Unspecified atrial fibrillation; K21.9 Gastro-esophageal reflux disease without esophagitis; N40.0 Benign prostatic hyperplasia without lower urinary tract symptoms; M06.9 Rheumatoid arthritis, unspecified | CPT/HCPCS: 80053; 80061; 85025 ==

== ENCOUNTER 2023-09-02 06:31 | Emergency (ER) | payer MEDICARE, SELFPAY ==
[2023-09-02 06:32] VITALS: BP 113/84; PULSE 74; RESP 16; TEMP 36.6; O2SAT 96; BMI 23.7
--- NOTE | 2023-09-02 06:47 | ED_ITS ---
HPI - Chest Pain 2 General: Chief Complaint: Chest Pain Stated Complaint: cardiac dysrhythmia Time Seen by Provider: 09/02/23 06:38 Source: patient Mode of arrival: EMS History of Present Illness: 67-year-old male presents to the emergen cy room via EMS. He has a history of SVT woke up swelling of rapid heart rate nearing 200 EMS arrived to evaluate the patient he was given 6 mg of adenosine and converted after this. Is also given 324 of aspirin. He has a known history of SVT and has had intermittent difficulty for the last 3 to 4 years. He is being referred to electrophysiology for possible ablation. On his current medicine list he has both metoprolol and sotalol. He has been taking all his medications regularly. He says he frequently gets some jaw discomfort when he has episodes of SVT. He did have some jaw discomfort this morning but resolved after he was converted he has no chest pain or discomfort at this time. Associated symptoms: Deny abdominal pain, dyspnea or fever(s) Review of Systems 2 Const: Denies: fever(s) or chills Card: Denies: chest pain Resp: Denies: dyspnea GI: Denies: abdominal pain : Denies: dysuria, urinary frequency or urinary urgency Musc: Denies: neck pain or back pain Skin/Breast: Denies: rash PFSH ED 2 PFSH: Medical History Methamphetamine use disorder, moderate, in early remission Rheumatoid arthritis Hepatitis C Reports this has not been completely treated. CAD in [place] artery Mixed hyperlipidemia AAA (abdominal aortic aneurysm) Current every day smoker BPH (benign prostatic hyperplasia) HTN (hypertension) Atrial fibrillation Surgical History Stented coronary artery Family History Other CAD (coronary artery disease) Dementia Social History Smoking and tobacco/nicotine status: current every day tobacco/nicotine user Alcohol intake: former Substance/Drug Use: current Substance/Drug use frequency: few times a month Lives independently: No Marital status: / service: No Current occupational status: disabled Current gender identity: Male Physical Exam 2 Const: COMMON NORMALS: no acute distress GENERAL APPEARANCE: cooperative and comfortable ORIENTATION/CONSCIOUSNESS: Yes awake, Yes oriented to person, Yes oriented to place and Yes oriented to time HENMT: COMMON NORMALS: normocephalic, atraumatic and hearing grossly normal bilaterally HEAD & SCALP: normocephalic and atraumatic Resp: COMMON NORMALS: normal respiratory effort, No retractions, No use of accessory muscles and clear to auscultation bilaterally AUSCULTATION: clear to auscultation bilaterally Cardio: COMMON NORMALS: regular rate, regular rhythm and No murmurs present (Cardio) RATE: regular rate RHYTHM: regular rhythm GI: COMMON NORMALS: Soft to palpation and No hepatosplenomegaly present A USCULTATION: Yes normoactive bowel sounds PALPATION: Yes Soft to palpation, No Tenderness to palpation present (GI), No Guarding due to palpation present (GI) and Yes No hepatosplenomegaly present Extremity: COMMON NORMALS: normal to inspection, capillary refill normal, no clubbing, cyanosis or edema, no calf tenderness and no pedal edema Neuro: SENSORIUM/ORIENTATION: Yes oriented to person, Yes oriented to place and Yes oriented to time Skin: COMMON NORMALS: no rashes or lesions noted GENERAL SKIN EXAM: no rashes or lesions noted Course 2 Vital Signs: Vital signs: Vital Signs Temperature 97.8 F 09/02/23 06:32 Pulse Rate 66 09/02/23 08:25 Respiratory Rate 24 H 09/02/23 07:05 Blood Pressure 121/83 09/02/23 08:25 Pulse Oximetry 97 09/02/23 08:25 Oxygen Delivery Me thod Room Air 09/02/23 06:32 MDM - Chest Pain Medical Decision Making SVT resolved by the time the patient arrived here has not had any further symptoms labs reviewed no significant abnormality. Rhythm remained stable. Creatinine is actually improved from his usual baseline. Will discharge patient home continue current medications continue to follow with cardiology regarding his episodes of SVT. Medical Records I reviewed the patient's medical records. Lab Data I reviewed the patient's lab results. 09/02/23 06:37 09/02/23 06:37 Laboratory Results WBC 7.93 10^3/uL (3.29-11.43) 09/02/23 06:37 RBC 4.65 10^6/uL (3.85-5.65) 09/02/23 06:37 Hgb 12.20 g/dL (11.27-16.99) 09/02/23 06:37 Hct 38.6 % (37-53) 09/02/23 06:37 MCV 83.0 fl (82-101) 09/02/23 06:37 MCH 26.2 pg (27-33) L 09/02/23 06:37 MCHC 31.6 g/dL (30-55) 09/02/23 06:37 RDW 16.5 % (12.1-15.1) H 09/02/23 06:37 Plt Count 240 10^3/cmm (157-399) 09/02/23 06:37 MPV 10.4 fL (7.4-10.4) 09/02/23 06:37 Neut % (Auto) 51.1 % 09/02/23 06:37 Lymph % (Auto) 34.2 % 09/02/23 06:37 [place] % (Auto) 6.7 % 09/02/23 06:37 Eos % (Auto) 5.9 % 09/02/23 06:37 Baso % (Auto) 1.6 % 09/02/23 06:37 Neut # (Auto) 4.05 10^3/uL (1.8-7.7) 09/02/23 06:37 Lymph # (Auto) 2.7 10^3/uL (0.8-4.8) 09/02/23 06:37 [place] # (Auto) 0.5 10^3/uL (0.2-0.9) 09/02/23 06:37 Eos # (Auto) 0.5 10^3/uL (0.0-0.8) 09/02/23 06:37 Baso # (Auto) 0.1 10^3/uL (0.0-0.1) 09/02/23 06:37 Nucleated RBC % (auto) 0 % 09/02/23 06:37 Nucleated RBCs # 0.0 /100WBC 09/02/23 06:37 Sodium 142 mmol/L (136-145) 09/02/23 06:37 Potassium 4.1 mmol/L (3.5-5.1) 09/02/23 06:37 Chloride 106 mmol/L (98-107) 09/02/23 06:37 Carbon Dioxide 26 mmol/L (22-29) 09/02/23 06:37 Anion Gap 14.1 (5-19) 09/02/23 06:37 BUN 24 mg/dL (8-23) H 09/02/23 06:37 Creatinine 1.3 mg/dL (0.7-1.2) H 09/02/23 06:37 GFR Calculation 55.2 mL/min (90-130) L 09/02/23 06:37 Glucose 130 mg/dL (65-115) H 09/02/23 06:37 Calculated Osmolality 300 mOsm/kg (285-295) H 09/02/23 06:37 Calcium 8.3 mg/dL (8.5-10.5) L 09/02/23 06:37 Total Bilirubin 0.2 mg/dL (0.15-1.2) 09/02/23 06:37 AST 8 U/L (0-40) 09/02/23 06:37 ALT 9 U/L (0-41) 09/02/23 06:37 Alkaline Phosphatase 81 U/L (40-130) 09/02/23 06:37 Total Protein 5.9 g/dL (6.6-8.7) L 09/02/23 06:37 Albumin 3.3 g/dL (3.5-5.2) L 09/02/23 06:37 Globulin 2.6 g/dL (1.3-4.6) 09/02/23 06:37 All radiology interpretation(s) finalized by discharge Discharge Plan Discharge Patient Disposition: Home Clinical Impression: SVT (supraventricular tachycardia) Condition: Stable Prescriptions: No Action tamsulosin 0.4 mg capsule 0.8 mg PO BID 90 Days Qty: 360 1RF metoprolol tartrate 25 mg tablet 25 mg PO BID Qty: 60 1RF Eliquis 5 mg tablet 5 mg PO BID@0900,2100 90 Days Qty: 90 1RF sotalol 80 mg tablet 80 mg PO BID@0900,2100 90 Days Qty: 180 1RF prednisone 5 mg tablet See Rx Instructions .ROUTE .COMPLEX Qty: 30 1RF Dose Instruction: TAKE ONE TABLET BY MOUTH DAILY NEEDED FOR rheumatoid arthritis flare UP Rx Instructions: TAKE ONE TABLET BY MOUTH DAILY NEEDED FOR rheumatoid arthritis flare UP atorvastatin 20 mg tablet 20 mg PO QAM amlodipine 5 mg tablet 5 mg PO QAM aspirin 81 mg tablet,delayed release (DR/EC) 81 mg PO QAM pantoprazole [Protonix] 40 mg tablet,delayed release (DR/EC) 40 mg PO QAM bupropion HCl 150 mg tablet extended release 24 hr 150 mg PO QAM Discharge Orders: Discharge ED (Routine); Ordered 09/02/23 Ordered By: Chucho Evans Referrals: Radha Brice MD [Primary Care Provider] - Discharge Diet: Usual diet Discharge Activity: Resume usual activity Patient Instructions: Opioid Safety, Pain Management Activity Restrictions/Additional Instructions: Thank you for choosing [facility] for your healthcare needs today. It is very important that you follow up as instructed or that you return to the Emergency Department should you have concerns or if your condition changes or worsens in any way. Continue to follow with tape recording machine operator regarding your SVT. No change in medications at this time. Coding Level of Care Code ED Pig Iron Loader for Ashleigh Villalpando
[2023-09-02 06:58] LABS: Basophils # 0.1 10^3/uL (0.0-0.1); Basophils % 1.6 %; Eosinophils # 0.5 10^3/uL (0.0-0.8); Eosinophils % 5.9 %; Hematocrit 38.6 % (37-53); Lymphocytes # 2.7 10^3/uL (0.8-4.8); Lymphocytes % 34.2 %; Mean Corpuscular HGB Conc 31.6 g/dL (30-55); Mean Corpuscular Hemoglobin 26.2 pg (27-33); Mean Platelet Volume 10.4 fL (7.4-10.4); Monocytes # 0.5 10^3/uL (0.2-0.9); Monocytes % 6.7 %; Neutrophils # 4.05 10^3/uL (1.8-7.7); Neutrophils % 51.1 %; Nucleated Red Blood Cells % 0 %; Platelet Count 240 10^3/cmm (157-399); Red Blood Count 4.65 10^6/uL (3.85-5.65); Red Cell Distribution Width 16.5 % (12.1-15.1); White Blood Count 7.93 10^3/uL (3.29-11.43)
[2023-09-02 07:05] VITALS: BP 111/84; PULSE 70; RESP 24; O2SAT 98
[2023-09-02 07:07] LABS: Alanine Aminotransferase 9 U/L (0-41); Albumin Level 3.3 g/dL (3.5-5.2); Alkaline Phosphatase 81 U/L (40-130); Anion Gap 14.1 (5-19); Aspartate Amino Transferase 8 U/L (0-40); Blood Urea Nitrogen 24 mg/dL (8-23); Calcium 8.3 mg/dL (8.5-10.5); Carbon Dioxide 26 mmol/L (22-29); Chloride 106 mmol/L (98-107); Creatinine Clr Calc Pharmacy 63.7213; Globulin 2.6 g/dL (1.3-4.6); Glomerular Filtration Rate 55.2 mL/min (90-130); Glucose 130 mg/dL (65-115); Osmolality Calculated 300 mOsm/kg (285-295); Potassium 4.1 mmol/L (3.5-5.1); Sodium 142 mmol/L (136-145); Total Bilirubin 0.2 mg/dL (0.15-1.2); Total Protein 5.9 g/dL (6.6-8.7)
--- NOTE | 2023-09-02 07:07 | ECG_ITS ---
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 Measurements Intervals [place] Rate: 69 P: 35 MA: 167 QRS: 75 QRSD: 86 T: 72 QT: 394 QTc: 423 Interpretive Statements SINUS RHYTHM Compared to ECG 08/08/2023 09:09:59 No significant changes Electronically Signed On 09-02-2023 22:22:02 CDT by Lenny Pierce M.D. [email or web address] [id number]
[2023-09-02 08:25] VITALS: BP 121/83; PULSE 66; O2SAT 97
== END 2023-09-02 08:28 | disposition home or self-care (01) ==
PROVIDERS: Emergency Provider Family Medicine; PCP Family Medicine
DX: I47.10 Supraventricular tachycardia, unspecified (principal); Z79.01 Long term (current) use of anticoagulants; Z79.82 Long term (current) use of aspirin; Z86.19 Personal history of other infectious and parasitic diseases; I25.10 Atherosclerotic heart disease of native coronary artery without angina pectoris; E78.2 Mixed hyperlipidemia; I10 Essential (primary) hypertension; Z72.0 Tobacco use
CPT/HCPCS: 80053; 85025; 93005; 99284

== ENCOUNTER → 2023-12-30 14:18 | Outpatient (BNVA) | payer MEDICARE, SELFPAY | PROVIDERS: PCP Nurse Practitioner Family; Visit Provider Nurse Practitioner Family | DX: R33.9 Retention of urine, unspecified (principal); N39.0 Urinary tract infection, site not specified | CPT/HCPCS: 81000; 87086 ==

== ENCOUNTER → 2024-04-07 10:26 | Outpatient (BNVA) | payer MEDICARE, SELFPAY | PROVIDERS: Family Provider Nurse Practitioner Family; PCP Nurse Practitioner Family; Visit Provider Nurse Practitioner Family | DX: R05.9 Cough, unspecified (principal); Z87.81 Personal history of (healed) traumatic fracture; R91.8 Other nonspecific abnormal finding of lung field; R93.7 Abnormal findings on diagnostic imaging of other parts of musculoskeletal system | CPT/HCPCS: 71046 ==

== ENCOUNTER 2024-04-22 18:10 | Emergency (ER) | payer MEDICARE, SELFPAY ==
[2024-04-22 18:19] VITALS: BP 114/83; PULSE 78; RESP 16; TEMP 36.8; O2SAT 100; BMI 24.4
--- NOTE | 2024-04-22 18:29 | W.ED.EAR ---
HPI - Ear Problem General: Chief complaint: Ear Stated complaint: ears stopped up Time Seen by Provider: 04/22/24 18:12 History of Present Illness: 68-year-old male patient comes in today with difficulty hearing. Patient reports history of cerumen impaction. Patient believes he has not impaction in both ears. Related Data Home Medications ?Medication ?Instructions ?Recorded ?Confirmed amlodipine 5 mg tablet 5 mg PO QAM 05/08/23 04/07/24 Previous Rx's ?Medication ?Instructions ?Recorded sotalol 80 mg tablet 80 mg PO BID@0900,2100 90 days 05/12/23 #180 tabs aspirin 81 mg tablet,delayed See Rx Instructions .Route 10/20/23 release .COMPLEX #90 tabs metoprolol tartrate 25 mg tablet See Rx Instructions .Route 11/22/23 .COMPLEX #60 tabs apixaban 5 mg tablet (Eliquis) See Rx Instructions .Route 12/02/23 .COMPLEX #90 tabs atorvastatin 20 mg tablet 20 mg PO QAM #90 tabs 01/06/24 bupropion HCl 150 mg 24 hr tablet, 150 mg PO QAM #90 tabs 01/06/24 extended release pantoprazole 40 mg tablet,delayed 40 mg PO QAM #90 tabs 01/06/24 release (Protonix) sildenafil 50 mg tablet (Viagra) 50 mg PO DAILY PRN sexual activity 01/06/24 #10 tabs tamsulosin 0.4 mg capsule 0.8 mg (2 x 0.4 mg) PO BID 90 days 01/06/24 #360 caps prednisone 5 mg tablet See Rx Instructions .Route 03/02/24 .COMPLEX #30 tabs albuterol sulfate 90 mcg/actuation 2 puff inhalation QID PRN 04/07/24 aerosol inhaler (Ventolin HFA) shortness of breath or wheezing #18 grams amoxicillin 875 mg-potassium 1 tab PO BID 10 days #20 tabs 04/07/24 clavulanate 125 mg tablet Allergies Allergy/AdvReac Type Severity Reaction Status Date / Time No Known Allergies Allergy Verified 03/02/24 10:30 Review of Systems General: Reports: 10 or more systems reviewed and unremarkable except in HPI and below PFSH ED PFSH: Medical History Methamphetamine use disorder, moderate, in early remission Rheumatoid arthritis Hepatitis C Reports this has not been completely treated. CAD in [place] artery Mixed hyperlipidemia AAA (abdominal aortic aneurysm) Current every day smoker BPH (benign prostatic hyperplasia) HTN (hypertension) Atrial fibrillation Surgical History Stented coronary artery Family History Other CAD (coronary artery disease) Dementia Social History Smoking and tobacco/nicotine status: current every day tobacco/nicotine user Alcohol intake: former Substance/Drug Use: current Substance/Drug use frequency: few times a month Lives independently: No Marital status: / service: No Current occupational status: disabled Current gender identity: Male Physical Exam Const: COMMON NORMALS: alert HENMT: COMMON NORMALS: normocephalic HEAD & SCALP: normocephalic EXTERNAL AUDITORY CANAL: Abnormal EAC present EAC laterality: bilateral cerumen impaction Eye: GENERAL EYE: appearance normal, both eyes and all related structures Neck/C-Spine: COMMON NORMALS: full ROM Resp: COMMON NORMALS: normal respiratory effort Cardio: COMMON NORMALS: regular rate RATE: regular rate Back/Pelvis: COMMON NORMALS: thoracic and lumbar spine normal to inspection Extremity: COMMON NORMALS: full ROM Neuro: SENSORIUM/ORIENTATION: Yes alert Skin: COMMON NORMALS: turgor normal GENERAL SKIN EXAM: turgor normal Procedures Ear Wax Removal Both Ears: Cerumenolytic Used: other (Hydrogen peroxide) Results: Re-examined: cerumen removed completely TM Examination: TM(s) intact, normal appearance Ear Canal Exam: atraumatic Patient Tolerated Procedure: well Complications: no problems Technique: ear canal irrigated Course Vital Signs: Vital signs: Vital Signs Temperature 98.2 F 04/22/24 18:19 Pulse Rate 78 04/22/24 18:19 Respiratory Rate 16 04/22/24 18:19 Blood Pressure 114/83 04/22/24 18:19 Pulse Oximetry 100 04/22/24 18:19 Oxygen Delivery Me thod Room Air 04/22/24 18:19 MDM - Ear Medical Decision Making 68-year-old male patient comes in with difficulty hearing out of both ears. Patient believes he is impacted with cerumen in both ear canals. On exam patient does have occlusion of the TM from cerumen. Differential diagnosis cerumen impaction, otitis externa, perforation of TM. Ear canals were irrigated with warm water and hydrogen peroxide combination until clear. Nursing performed this. Postprocedure no injury to the canal or tympanic membrane was noted. Patient reports understanding of care plan need for follow-up or return to the ER. No radiology studies performed this visit Discharge Plan Discharge Patient Disposition: Home Clinical Impression: Impacted cerumen of both ears Condition: Stable Prescriptions: No Action bupropion HCl 150 mg tablet extended release 24 hr 150 mg PO QAM Qty: 90 1RF pantoprazole [Protonix] 40 mg tablet,delayed release (DR/EC) 40 mg PO QAM Qty: 90 1RF atorvastatin 20 mg tablet 20 mg PO QAM Qty: 90 1RF sildenafil [Viagra] 50 mg tablet 50 mg PO DAILY PRN (Reason: sexual activity) Qty: 10 5RF Rx Instructions: administer 30 minutes to 4 hours before activity tamsulosin 0.4 mg capsule 0.8 mg PO BID 90 Days Qty: 360 1RF amoxicillin-pot clavulanate 875-125 mg tablet 1 tab PO BID 10 Days Qty: 20 0RF albuterol sulfate [Ventolin HFA] 90 mcg/actuation HFA aerosol inhaler 2 puff inhalation QID PRN (Reason: shortness of breath or wheezing) Qty: 18 0RF sotalol 80 mg tablet 80 mg PO BID@0900,2100 90 Days Qty: 180 1RF prednisone 5 mg tablet See Rx Instructions .ROUTE .COMPLEX Qty: 30 0RF Dose Instruction: TAKE ONE TABLET BY MOUTH DAILY NEEDED FOR rheumatoid arthritis flare UP Rx Instructions: TAKE ONE TABLET BY MOUTH DAILY NEEDED FOR rheumatoid arthritis flare UP aspirin 81 mg tablet,delayed release (DR/EC) See Rx Instructions .ROUTE .COMPLEX Qty: 90 1RF Dose Instruction: TAKE ONE TABLET BY MOUTH DAILY Rx Instructions: TAKE ONE TABLET BY MOUTH DAILY metoprolol tartrate 25 mg tablet See Rx Instructions .ROUTE .COMPLEX Qty: 60 1RF Dose Instruction: TAKE ONE TABLET BY MOUTH TWICE DAILY Rx Instructions: TAKE ONE TABLET BY MOUTH TWICE DAILY Eliquis 5 mg tablet See Rx Instructions .ROUTE .COMPLEX Qty: 90 1RF Dose Instruction: TAKE ONE TABLET BY MOUTH TWICE DAILY at 9am and 9pm Rx Instructions: TAKE ONE TABLET BY MOUTH TWICE DAILY at 9am and 9pm amlodipine 5 mg tablet 5 mg PO QAM Discharge Orders: Discharge ED (Routine); Ordered 04/22/24 Ordered By: Al Mcdaniels Referrals: Malgorzata Hughes FNP-C [Primary Care Provider] - Discharge Diet: Usual diet Discharge Activity: Increase activity as tolerated Patient Instructions: Cerumen Impaction Activity Restrictions/Additional Instructions: Follow-up with primary care. Return to ED for new concerns. Print Language: Danish Coding Level of Care Code ED Regional Business Manager for Ashleigh Villalpando
[2024-04-22 20:31] VITALS: BP 135/87; PULSE 78; O2SAT 97
== END 2024-04-22 20:31 | disposition home or self-care (01) ==
PROVIDERS: Emergency Provider Nurse Practitioner Family; PCP Nurse Practitioner Family
DX: H61.23 Impacted cerumen, bilateral (principal); Z79.82 Long term (current) use of aspirin; Z79.01 Long term (current) use of anticoagulants
CPT/HCPCS: 99282

== ENCOUNTER → 2024-09-04 11:47 | Outpatient (BNVA) | payer MEDICARE, SELFPAY | PROVIDERS: PCP Nurse Practitioner Family; Visit Provider Nurse Practitioner Family | DX: M06.9 Rheumatoid arthritis, unspecified (principal); I71.40 Abdominal aortic aneurysm, without rupture, unspecified | CPT/HCPCS: 80053; 80061; 85025; 85651; 86140; 86160; 86162; 86235; 86255; 86376; 86431 ==

== ENCOUNTER → 2024-10-30 10:11 | Outpatient (BNVA) | payer MEDICARE, SELFPAY | PROVIDERS: PCP Nurse Practitioner Family; Visit Provider Nurse Practitioner Family | DX: S49.91XA Unspecified injury of right shoulder and upper arm, initial encounter (principal); M25.511 Pain in right shoulder; Z87.81 Personal history of (healed) traumatic fracture; X58.XXXA Exposure to other specified factors, initial encounter | CPT/HCPCS: 73030 ==

== ENCOUNTER → 2024-12-21 13:36 | Outpatient (BNVA) | payer MEDICARE, SELFPAY | PROVIDERS: PCP Nurse Practitioner Family; Referring Provider Nurse Practitioner Family; Visit Provider Internal Medicine Rheumatology | DX: M05.79 Rheumatoid arthritis with rheumatoid factor of multiple sites without organ or systems involvement (principal); B19.20 Unspecified viral hepatitis C without hepatic coma; Z79.899 Other long term (current) drug therapy; Z71.85 Encounter for immunization safety counseling | CPT/HCPCS: 36415; 80076; 82565; 85025; 85651; 86140; 86480; 86704; 86803; 87340; 87522; 99204 ==